=== PATIENT | female | born 1955 | race Caucasian/White ===

== ENCOUNTER → 2017-05-21 | Outpatient (CLI) | payer BC ==
[~2017-05-21] MED LIST: BUPR200T2 PO; CARB0.5D28 OPB; CITA20TA9 PO; LAMO200T38 PO; METH10TA4 PO; PANT40TA PO; PRAV20TA PO; PSEU60TA80 PO; TRAZ100T29 PO; TRIA3AER NAE
--- NOTE | 2017-05-22 14:02 | MAMMOGRAPHY REPORT ---
BILATERAL DIGITAL SCREENING MAMMOGRAM TOMOSYNTHESIS WITH CAD: 05/21/2017 CLINICAL HISTORY: Routine screening. Patient has no complaints. TECHNIQUE: Breast tomosynthesis in addition to standard 2D mammography was performed. Current study was also evaluated with a Computer Aided Detection (CAD) system. COMPARISON: Comparison is made to exams dated: 05/15/2016 mammogram, 05/11/2015 mammogram, 04/28/2014 ma mmogram, 04/22/2013 mammogram, 04/21/2012 mammogram, and 04/18/2011 mammogram - [facility]. BREAST COMPOSITION: There are scattered areas of fibroglandular density in both breasts. FINDINGS: No suspicious masses, calcifications, or areas of architectural distortion are noted in ei ther breast. There has been no significant interval change compared to prior exams. IMPRESSION: ACR BI-RADS CATEGORY 1: NEGATIVE There is no mammographic evidence of malignancy. A 1 year screening mammogram is recommended. The pa tient will receive written notification of the results. Approximately 10% of breast cancers are not detected with mammography. A negative mammographic report should not delay biopsy if a clinically suggestive mass is present. Prudence Webster M.D. /:05/21/2017 15:57:26 Billing Typist: Shilpa Barry [facility] letter sent: Normal 1/2 BI-RADS Code: ACR BI-RADS Category 1: Negative
== END | disposition home or self-care (01) ==
LOC: C.MAMM 09:45
PROVIDERS: ATTEND Family Medicine
DX: Z12.31 Encounter for screening mammogram for malignant neoplasm of breast (principal)

== ENCOUNTER 2019-10-27 18:00 | Observation (INO) ==
[2019-10-27] MEDS ORDERED: MoRPHine SULFATE 4 MG/ML 1 ML CARP\\VIAL IV STA (18:55)
[2019-10-27] MEDS ORDERED: KETOROLAC TROMETHAMINE 15 MG/ML VIAL IV STA (18:55)
[2019-10-27 19:24] LABS: Basophils # (auto) 0.04 K/uL (0-0.2); Basophils % (auto) 0.5 %; Eosinophils # (auto) 0.84 K/uL (0-0.5); Eosinophils % (auto) 9.5 %; Hematocrit (blood only) 41.8 % (37-47); Hemoglobin 14.3 g/dL (12.0-16.0); Immature Granulocytes # (auto) 0.02 K/uL (0.00-0.02); Immature Granulocytes % (auto) 0.2 %; Lymphocytes # (auto) 3.46 K/uL (1.2-3.4); Mean Corpuscular Hemoglobin 30.2 pg (25-34); Mean Corpuscular Hgb Conc 34.2 g/dL (32-36); Mean Corpuscular Volume 88.4 fL (80-100); Mean Platelet Volume 9.8 fL (7.4-10.4); Monocytes # (auto) 0.59 K/uL (0.11-0.59); Monocytes % (auto) 6.6 %; Neutrophils # (auto) 3.93 K/uL (1.4-6.5); Neutrophils % (auto) 44.2 %; Platelet Count 352 K/uL (130-400); RDW Coefficient of Variation 12.6 % (11.5-14.5); RDW Standard Deviation 40.7 fL (36.4-46.3); Red Blood Count 4.73 M/uL (4.2-5.4); White Blood Count 8.88 K/uL (4.8-10.8)
[2019-10-27 19:48] LABS: Albumin Level 3.7 gm/dl (3.4-5.0); BUN Creatinine Ratio 14.3 (10-20); Bilirubin,Total 0.3 mg/dl (0.2-1); Calcium 9.4 mg/dl (8.5-10.1); Creatinine Clr Calc Pharmacy 62.8 ml/min; Est GFR (Non-African American) 55.2; Globulin 3.8 gm/dl (2.5-4.0); Total Protein 7.5 gm/dl (6.4-8.2)
[2019-10-27] MEDS ORDERED: IOVERSOL 100ml IV PRN (20:10)
--- NOTE | 2019-10-27 20:28 | CT Scan Report ---
CT abd pelvis IV con only CLINICAL HISTORY: Right-sided abdominal/flank pain. COMPARISON STUDY: CT scan performed 2009 TECHNIQUE: The patient was scanned in a dynamic helical fashion during intravenous administration of 93 cc of Optiray 320. A dose lowering technique was utilized adhering to the principles of ALARA. CT DOSE: 792.48 mGy.cm FINDINGS: Lower chest: There are dependent atelectatic changes present. Liver: There is hepatic steatosis. No focal masses are visualized Gallbladder: . Spleen: Normal in size and attenuation. Pancreas: Unremarkable. Adrenal glands: Unremarkable. Kidneys: There are bilateral hypodense renal lesions, likely representing cysts. There is no hydronep hrosis. Bowel: There are no transition zones to indicate bowel obstruction. By history the appendix is surgic ally absent. There is colonic diverticulosis. There is no evidence of acute peridiverticular inflamma tory change. There is soft tissue prominence in the region of the ileocecal valve. A cecal polyp vidya ot be excluded. Correlation with history of recent colon screening is recommended Peritoneum: There is no intraperitoneal free air or abdominal ascites. There is a small fat-containin g periumbilical hernia Vasculature: The abdominal aorta is normal in course and caliber. Adenopathy: None. Pelvic viscera: The bladder, and pelvic viscera are unremarkable. Skeletal structures: No destructive osseous lesions are seen. IMPRESSION: 1. No evidence of bowel obstruction. No evidence of free air 2. Surgically absent appendix 3. Diverticulosis. No evidence of acute diverticulitis 4. Bilateral hypodense renal lesions likely representing cysts. No hydronephrosis 5. Soft tissue prominence in the region of the ileocecal valve. A cecal polyp cannot be excluded. Cor relation with history of recent colon screening is recommended ACT 112: Negative or not required by law. Electronically signed by: Waylon Frey M.D. 10/27/2019 8:27 PM
--- NOTE | 2019-10-27 20:31 | CT Scan Report ---
CT lumbar spine wo con CT DOSE: CLINICAL HISTORY: Low back and right flank pain TECHNIQUE: Helical images were acquired in transverse plane. Reformatted sagittal and coronal images were reviewed. A dose lowering technique was utilized adhering to the principles of ALARA. CONTRAST: No contrast was administered COMPARISON STUDY: None. FINDINGS: L1-2 level: There is no evidence of significant disc bulge or focal herniation. There is no evidence of spinal or foraminal stenosis. L2-3 level: There is no evidence of significant disc bulge or focal herniation. There is no evidence of spinal or foraminal stenosis. L3-4 level: There is a mild circumferential disc bulge. There is minimal spinal canal narrowing. Ther e is moderate facet joint arthropathy L4-5 level: There is a minimal grade 1 spondylolisthesis of L4 and L5. There is facet joint arthropat hy. There is a minimal disc bulge. There is mild spinal canal narrowing. There is no significant fora katlin narrowing L5-S1 level: There is no evidence of significant disc bulge or focal herniation. There is no evidence of spinal or foraminal stenosis. No acute fractures or traumatic subluxations are visualized. No destructive lesions are evident. IMPRESSION: 1. Mild multilevel degenerative change with lower lumbar facet joint arthropathy and mild disc bulges 2. No acute fractures or traumatic subluxations ACT 112: Negative or not required by law. Electronically signed by: Waylon Frey M.D. 10/27/2019 8:29 PM
[2019-10-27] MEDS ORDERED: ONDANSETRON INJ 2 MG/ML 2 ML VIAL IV STA ×2 (21:03→22:13)
[2019-10-27] MEDS ORDERED: DEXAMETHASONE **PF** INJ 10 MG/ML VIAL IV ONE (21:03)
[2019-10-27] MEDS ORDERED: HYDROCODONE/ACETAMOPHEN 5/325MG TAB PO ONE (21:41)
[2019-10-27] MEDS ORDERED: LIDOCAINE 5% 1 PATCH TD ONE (21:42)
[2019-10-27 22:04] LABS: Appearance Urine Clear (Clear); Bilirubin Urine Negative (Negative); Blood Urine Negative (Negative); Color Urine Yellow; Glucose Urine UA Negative (Negative); Ketones Urine Negative (Negative); Leukocyte Esterase Urine Negative (Negative); Nitrite Urine Negative (Negative); Protein Urine Negative (Negative); Specific Gravity Urine 1.044 (1.000-1.030); Urobilinogen Urine Negative (Negative)
--- NOTE | 2019-10-27 23:00 | Emergency Department Note ---
Entered by Shirley Arce acting as a scribe for Hu Mendoza M.D. History of Present Illness General Chief complaint: Hip Pain Stated complaint: HIP PAIN Time Seen by Provider: 10/27/19 18:43 Source: patient History of Present Illness Onset (ago): year(s) (several) Location: hip Pain Consistency: + intermittent Maximum Pain Intensity: 10 Quality: + other (hip pain) Associated symptoms: + other (+leg numbness or weakness; -urinary symptoms); no nausea/vomiting The patient is a 64 year old female, with past medical history of osteoporosis and kidney stone, who presents to the Emergency Room with complaints of intermittent hip pain over the last several years. The patient reports that her symptoms began 8 years ago following breaking her left leg from a fall. The patient states she started developing left hip pain after she broke her left leg, and the patient notes she saw a medical records library professor for her symptoms. The pat dahlia reports that her medical records library professor told her that she has bursitis, and she states she was recommended to go to physical therapy. The patient states that after her 3rd or 4th visit to physical therapy, her left hip pain shifted to the right side and has been that way ever since. The patient is complaining of right hip pain currently. She states that [facility] told her that they think her symptoms are caused by her pelvic being out of line. The patient notes the pain is located to the top of her right hip and then spreads into the back in that area. The patient denies numbness or weakness down her legs, nausea, vomiting, or urinary symptoms. The patient states she took 2-3 ibuprofen about 7-8 hours ago, but the patient states this did not provide much relief. The patient denies getting imaging done on her hips recently. The patient denies her present symptoms feeling like her past kidney stone symptoms. Home Medications Home Medications Medication Instructions Recorded Confirmed Type alendronate [Fosamax] 70 mg PO WK 10/27/19 10/27/19 History armodafinil [Nuvigil] 150 mg PO DAILY 10/27/19 10/27/19 History ascorbic acid (vitamin C) [Vitamin 1 g PO DAILY 10/27/19 10/27/19 History C] atorvastatin [Lipitor] 10 mg PO DAILY 10/27/19 10/27/19 History bupropion HCl 300 mg PO DAILY 10/27/19 10/27/19 History calcium carbonate [Calcium 600] 600 mg PO DAILY 10/27/19 10/27/19 History cholecalciferol (vitamin D3) 400 unit PO DAILY 10/27/19 10/27/19 History [Vitamin D3] cyanocobalamin (vitamin B-12) 1,000 mcg PO DAILY 10/27/19 10/27/19 History [Vitamin B-12] guaifenesin [Mucinex] 600 mg PO Q12H PRN 10/27/19 10/27/19 History lamotrigine 200 mg PO HS 10/27/19 10/27/19 History pantoprazole [Protonix] 40 mg PO BID 10/27/19 10/27/19 History sodium chloride [Saline Nasal Mist] 1 spray INTRANASAL UD PRN 10/27/19 10/27/19 History trazodone 25 mg PO HS PRN 10/27/19 10/27/19 History triamcinolone acetonide [Nasacort] 1 - 2 spray INTRANASAL DAILY PRN 10/27/19 History Allergies Allergy/AdvReac Type Severity Reaction Status Date / Time oxybutynin Allergy Mild DRY MOUTH Verified 10/27/19 18:58 temazepam Allergy Mild DIDN'T Verified 10/27/19 18:58 HELP HER amitriptyline AdvReac Severe NON Verified 10/27/19 18:58 FUNCTIONING buspirone AdvReac Severe IMMOBILE Verified 10/27/19 18:58 paroxetine AdvReac Mild SHAKES Verified 10/27/19 18:58 Past Med/Surg History Medical History Headache (Acute) Headache (Acute) Kidney stone (Resolved) Left leg pain (Acute) Malrotation of intestine (Resolved) Nausea and vomiting (Acute) Osteoporosis Family History Other No significant family history Social History Preferred Language: German Feels Safe at Home: Yes Smoking Status: Former smoker Review of Systems See HPI for pertinent positives & negatives. and A total of 10 systems reviewed and were otherwise negative Physical Exam Vital Signs Vital Signs - 24 hr 10/27/19 18:03 10/27/19 18:40 10/27/19 22:23 Temperature 36.6 C Temperature Source Oral Pulse Rate 73 Pulse Rate [Left] 68 70 Respiratory Rate 20 18 19 Respiratory Effort / Characteristics Non-Labored Spontaneous Non-Labored Spontaneous Blood Pressure 212/119 H Blood Pressure [Left Arm] 152/71 H 167/109 H Blood Pressure Mean 150 Blood Pressure Mean [Left Arm] 98 128 Blood Pressure Position Lying Blood Pressure Position [Left Arm] Lying Pulse Oximetry 97 97 97 Oxygen Delivery Method Room Air Room Air Sepsis Recent Fever Within 48 Hours No Sepsis New/Unexplained Change in Mental Status No Sepsis Action Taken by Nursing No Action Required GENERAL: Awake, alert, uncomfortable-appearing, in no distress HENT: Normocephalic, atraumatic. EYES: Normal conjunctiva. Sclera non-icteric. RESPIRATORY: Clear to auscultation. Normal respiratory effort. CARDIAC: Normal rate. Normal rhythm. Extremities warm and well perfused. GI: Soft, non-distended. No tenderness to palpation. No rebound or guarding. No masses. RECTAL: Deferred. MUSCULOSKELETAL: Atraumatic. Chest examination reveals no tenderness. There is no CVA tenderness to palpation. Mild right SI joint tenderness. LOWER EXTREMITIES: Calves are equal size bilaterally and non-tender. No edema. Lower extremities NVI. NEURO: Normal sensorium. No sensory or motor deficits noted. No facial droop. SKIN: Warm and dry. No rash or jaundice noted. Course Course 1850: Past medical records reviewed. The patient was evaluated in room A4B. A complete history and physical exam was performed. 2225: I reviewed the patient's case with Dr. Nix-Alma Reeves. Dr. Nix will evaluate the patient for further management. Consultations Consultation #1: I reviewed the patient's case with Dr. Nix-Alma Reeves. Dr. Nix will evaluate the patient for further management. Administered Medications Ioversol (Optiray 320 100ml) 93 ml IV ONCE PRN PRN Reason: Interaction Checking Stop: 10/31/19 20:09 Last Admin: 10/27/19 20:12 Dose: 93 ml Documented by: [id number] Discontinued Medications Hydrocodone Bitart/Acetaminophen ([employer] 5/325) 1 tab PO ONE ONE Stop: 10/27/19 21:42 Last Admin: 10/27/19 21:49 Dose: 1 tab Documented by: [id number] Dexamethasone Sodium Phosphate (Decadron Pf) 6 mg IV NOW ONE Stop: 10/27/19 21:04 Last Admin: 10/27/19 21:10 Dose: 6 mg Documented by: [id number] Ketorolac Tromethamine (Toradol) 15 mg IV NOW STA Stop: 10/27/19 18:56 Last Admin: 10/27/19 19:30 Dose: 15 mg Documented by: [id number] Lidocaine (Lidoderm 5%) 1 patch TD ONE ONE Stop: 10/27/19 21:43 Last Admin: 10/27/19 21:49 Dose: 1 patch Documented by: [id number] Morphine Sulfate (Morphine Sulfate) 4 mg IV NOW STA Stop: 10/27/19 18:56 Last Admin: 10/27/19 19:30 Dose: 4 mg Documented by: [id number] Ondansetron HCl (Zofran) 4 mg IV NOW STA Stop: 10/27/19 21:04 Last Admin: 10/27/19 21:10 Dose: 4 mg Documented by: [id number] Ondansetron HCl (Zofran) 4 mg IV NOW STA Stop: 10/27/19 22:14 Last Admin: 10/27/19 22:22 Dose: 4 mg Documented by: [id number] Medical Decision Making Differential Diagnosis Differential diagnosis: Etiologies such as renal colic, appendicitis, diverticulitis, mesenteric ischemia, aortic pathology, infections, inflammatory bowel disease, PUD, biliary pathology, UTI, as well as others were entertained. Medical Records Attestation: I reviewed the patient's medical records. Home Medications Current Medication List: was personally reviewed by me Laboratory Data Attestation: I reviewed the patient's lab results. Result diagrams: 10/27/19 19:11 10/27/19 19:11 Lab Results 10/27/19 10/27/19 10/27/19 Range/Units 19:11 19:11 21:37 WBC 8.88 (4.8-10.8) K/uL RBC 4.73 (4.2-5.4) M/uL Hgb 14.3 (12.0-16.0) g/dL Hct 41.8 (37-47) % MCV 88.4 (80-100) fL MCH 30.2 (25-34) pg MCHC 34.2 (32-36) g/dL RDW Std Deviation 40.7 (36.4-46.3) fL RDW Coeff of [place] 12.6 (11.5-14.5) % Plt Count 352 (130-400) K/uL MPV 9.8 (7.4-10.4) fL Immature Gran % (Auto) 0.2 % Neut % (Auto) 44.2 % Lymph % (Auto) 39.0 % [place] % (Auto) 6.6 % Eos % (Auto) 9.5 % Baso % (Auto) 0.5 % Immature Gran # (Auto) 0.02 (0.00-0.02) K/uL Neut # (Auto) 3.93 (1.4-6.5) K/uL Lymph # (Auto) 3.46 H (1.2-3.4) K/uL [place] # (Auto) 0.59 (0.11-0.59) K/uL Eos # (Auto) 0.84 H (0-0.5) K/uL Baso # (Auto) 0.04 (0-0.2) K/uL Sodium 140 (136-145) mmol/L Potassium 4.0 (3.5-5.1) mmol/L Chloride 107 (98-107) mmol/L Carbon Dioxide 29 (21-32) mmol/L Anion Gap 4.0 (3-11) BUN 15 (7-18) mg/dl Creatinine 1.07 (0.6-1.2) mg/dl Est Cr Clr Drug Dosing 62.8 ml/min Est GFR ( Amer) 64.0 Est GFR (Non-Af Amer) 55.2 BUN/Creatinine Ratio 14.3 (10-20) Glucose 113 H (70-99) mg/dl Calcium 9.4 (8.5-10.1) mg/dl Total Bilirubin 0.3 (0.2-1) mg/dl AST 28 (15-37) U/L ALT 34 (12-78) U/L Alkaline Phosphatase 150 H (45-117) U/L Total Protein 7.5 (6.4-8.2) gm/dl Albumin 3.7 (3.4-5.0) gm/dl Globulin 3.8 (2.5-4.0) gm/dl Albumin/Globulin Ratio 1.0 (0.9-2) Lipase 192 (73-393) U/L Specimen Hemolysis Urine Color Yellow Urine Appearance Clear (Clear) Urine pH 7.0 (4.5-7.5) Ur Specific [place] 1.044 H (1.000-1.030) Urine Protein Negative (Negative) Urine Glucose (UA) Negative (Negative) Urine Ketones Negative (Negative) Urine Blood Negative (Negative) Urine Nitrite Negative (Negative) Urine Bilirubin Negative (Negative) Urine Urobilinogen Negative (Negative) Ur Leukocyte Esterase Negative (Negative) Imaging Data Radiologist's Impression: Radiology results as stated below per my review and the radiologist's interpretation: CT abd pelvis IV con only CLINICAL HISTORY: Right-sided abdominal/flank pain. COMPARISON STUDY: CT scan performed 2009 TECHNIQUE: The patient was scanned in a dynamic helical fashion during intra venous administration of 93 cc of Optiray 320. A dose lowering technique was utilized adhering to the principles of ALARA. CT DOSE: 792.48 mGy.cm FINDINGS: Lower chest: There are dependent atelectatic changes present. Liver: There is hepatic steatosis. No focal masses are visualized Gallbladder: . Spleen: Normal in size and attenuation. Pancreas: Unremarkable. Adrenal glands: Unremarkable. Kidneys: There are bilateral hypodense renal lesions, likely representing cysts. There is no hydronephrosis. Bowel: There are no transition zones to indicate bowel obstruction. By history the appendix is surgically absent. There is colonic diverticulosis. There is no evidence of acute peridiverticular inflammatory change. There is soft tissue prominence in the region of the ileocecal valve. A cecal polyp cannot be excluded. Correlation with history of recent colon screening is recommended Peritoneum: There is no intraperitoneal free air or abdominal ascites. There is a small fat-containing periumbilical hernia Vasculature: The abdominal aorta is normal in course and caliber. Adenopathy: None. Pelvic viscera: The bladder, and pelvic viscera are unremarkable. Skeletal structures: No destructive osseous lesions are seen. IMPRESSION: 1. No evidence of bowel obstruction. No evidence of free air 2. Surgically absent appendix 3. Diverticulosis. No evidence of acute diverticulitis 4. Bilateral hypodense renal lesions likely representing cysts. No hydronephrosis 5. Soft tissue prominence in the region of the ileocecal valve. A cecal polyp cannot be excluded. Correlation with history of recent colon screening is recommended ACT 112: Negative or not required by law. Electronically signed by: Waylon Frey M.D. 10/27/2019 8:[address] lumbar spine wo con CT DOSE: CLINICAL HISTORY: Low back and right flank pain TECHNIQUE: Helical images were acquired in transverse plane. Reformatted sagittal and coronal images were reviewed. A dose lowering technique was utilized adhering to the principles of ALARA. CONTRAST: No contrast was administered COMPARISON STUDY: None. FINDINGS: L1-2 level: There is no evidence of significant disc bulge or focal herniation. There is no evidence of spinal or foraminal stenosis. L2-3 level: There is no evidence of significant disc bulge or focal herniation. There is no evidence of spinal or foraminal stenosis. L3-4 level: There is a mild circumferential disc bulge. There is minimal spinal canal narrowing. There is moderate facet joint arthropathy L4-5 level: There is a minimal grade 1 spondylolisthesis of L4 and L5. There is facet joint arthropathy. There is a minimal disc bulge. There is mild spinal canal narrowing. There is no significant foraminal narrowing L5-S1 level: There is no evidence of significant disc bulge or focal herniation. There is no evidence of spinal or foraminal stenosis. No acute fractures or traumatic subluxations are visualized. No destructive lesions are evident. IMPRESSION: 1. Mild multilevel degenerative change with lower lumbar facet joint arthropathy and mild disc bulges 2. No acute fractures or traumatic subluxations ACT 112: Negative or not required by law. Electronically signed by: Waylon Frey M.D. 10/27/2019 8:29 PM Prescription Drug Monitoring [place] Drug Monitoring Program reviewed and no issues identified Blood Pressure Blood Pressure Findings: Elevated blood pressure Blood Pressure Disposition: further management by hospitalist CONY Paulson Patient is a 64-year-old female with a past medical history including kidney stone as well as recent left leg/hip injury currently in physical therapy for the last 6 weeks now having significant right hip pain. Denies trauma. Afebrile upon arrival. Tried some Motrin this morning without significant pain control. Patient significantly hypertensive upon arrival likely due to discomfort. Upon evaluation the room her blood pressure is 150 systolic. Again no new trauma reported. Denies any current numbness or tingling lower extremities. Pain is in the right hip into the right flank/SI joint. No significant abdominal symptoms. States it does not feel like prior kidney stone. Has not had recent imaging. Given this did complete a CT abdomen pelvis as well as lumbar spine to look for possible pathology. No significant leukocytosis or fever and lower suspicion for infectious cause. Given initially some Toradol and morphine for pain control. Do not believe this spinal cord pathology. Imaging here with some mild degenerative changes but no other acute pathology. Did discuss with her finding a possible polyp in the colon states she is a history of these and can follow-up in the outpatient setting. Given a dose of a steroid, lidocaine patch, and [employer] here. Pain is worse with movement. Patient ambulated the bathroom at worsening pain with this and nausea. Urinalysis is negative. Patient lives in a tri level home. Concern for stairs and her fall risk. With her intractable pain and nausea from the pain medications after jose f discussion with the patient feel that for safety and to obtain a acceptable pain regimen that she can tolerate further observation here in the hospital is warranted. Discussed with the hospitalist. Impression & Plan Intractable back pain Discharge Plan Visit Data Chief Complaint: Hip Pain Stated Complaint: HIP PAIN ED Provider: [facility] Discharge Problem: Intractable back pain Patient Disposition: Being Evaluated by Hospitalist Forms Stand Alone Forms: [employer] [facility] Prescriptions Prescriptions: No Action ascorbic acid (vitamin C) [Vitamin C] 1,000 mg Tablet 1 g PO DAILY RF: 0 lamotrigine 200 mg tablet 200 mg PO HS RF: 0 trazodone 50 mg Tablet 25 mg PO HS PRN (Reason: Insomnia) RF: 0 atorvastatin [Lipitor] 10 mg tablet 10 mg PO DAILY RF: 0 alendronate [Fosamax] 70 mg tablet 70 mg PO WK RF: 0 cyanocobalamin (vitamin B-12) [Vitamin B-12] 1,000 mcg Tablet 1,000 mcg PO DAILY RF: 0 calcium carbonate [Calcium 600] 600 mg calcium (1,500 mg) Tablet 600 mg PO DAILY RF: 0 pantoprazole [Protonix] 40 mg tablet,delayed release (DR/EC) 40 mg PO BID RF: 0 triamcinolone acetonide [Nasacort] 55 mcg Aerosol,[place] 1 - 2 spray INTRANASAL DAILY PRN (Reason: Nasal Congestion) RF: 0 cholecalciferol (vitamin D3) [Vitamin D3] 400 unit Capsule 400 unit PO DAILY RF: 0 sodium chloride [Saline Nasal Mist] 0.65 % Aerosol,[place] 1 spray INTRANASAL UD PRN (Reason: Nasal Congestion) RF: 0 bupropion HCl 300 mg tablet extended release 24 hr 300 mg PO DAILY RF: 0 armodafinil [Nuvigil] 150 mg tablet 150 mg PO DAILY RF: 0 guaifenesin [Mucinex] 600 mg Tablet Extended Release 12hr 600 mg PO Q12H PRN (Reason: Congestion) RF: 0 Referrals Referrals: Wilfredo Dominguez MD [Primary Care Provider] - The scribe's documentation has been prepared under my direction and personally reviewed by me in its entirety. I confirm that the note above accurately reflects all work, treatment, procedures, and medical decision making performed by me.
[2019-10-27] MEDS ORDERED: METOCLOPRAMIDE HCL INJ 5 MG/ML 2 ML VIAL IV ONE (23:06)
[2019-10-27] MEDS ORDERED: lisinopriL 5 MG TAB PO ONE (23:18)
[2019-10-27] MEDS ORDERED: lisinopriL 5 MG TAB PO STA (23:22)
--- NOTE | 2019-10-27 23:52 | History & Physical Report ---
Date of Service October 27, 2019 Assessment & Plan (1) Asymptomatic hypertensive urgency: Secondary to uncontrolled right hip pain Probable chronic hypertension given concentric LVH on outpatient DSE August 2017 mood disorder, at baseline hyperlipidemia on statin Rx history of DVT as per records Prediabetes, recent outpatient hemoglobin A1c of 6.14 August 2019 past tobacco abuse OBS Medical telemetry for uncontrolled blood pressure Initiate lisinopril Analgesia Orthopedics consult RE right hip pain (Patient requesting for Dr. Goodwin.) DVT prophylaxis. SCDs (RE possible procedure) Lovenox 40 mg SQ daily if no procedure contemplated from Orthopedics standpoint. Full code History of Present Illness Chief Complaint: Right hip pain Primary Care Provider: Wilfredo Dominguez MD History obtained from patient and records. Medical history significant for mood disorder, hyperlipidemia, JOSÉ MIGUEL on CPAP, history of DVT as per records, prediabetes as per records, past tobacco abuse. 6 weeks ago patient noted achy left hip pain attributed to trochanteric bursitis and by case management director. Patient eventually went for outpatient physical therapy. 3 weeks ago, patient noted improvement of left hip pain and subsequent pain migration to the right hip. No lower extremity radiation. No fever, no chills. No incontinence. Intractable pain at the ER. 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 Allergies Allergy/AdvReac Type Severity Reaction Status Date / Time oxybutynin Allergy Mild DRY MOUTH Verified 10/27/19 18:58 temazepam Allergy Mild DIDN'T Verified 10/27/19 18:58 HELP HER amitriptyline AdvReac Severe NON Verified 10/27/19 18:58 FUNCTIONING buspirone AdvReac Severe IMMOBILE Verified 10/27/19 18:58 paroxetine AdvReac Mild SHAKES Verified 10/27/19 18:58 Home Medications Home Medications Medication Instructions Recorded Confirmed Type alendronate [Fosamax] 70 mg PO WK 10/27/19 10/27/19 History armodafinil [Nuvigil] 150 mg PO DAILY 10/27/19 10/27/19 History ascorbic acid (vitamin C) [Vitamin 1 g PO DAILY 10/27/19 10/27/19 History C] atorvastatin [Lipitor] 10 mg PO DAILY 10/27/19 10/27/19 History bupropion HCl 300 mg PO DAILY 10/27/19 10/27/19 History calcium carbonate [Calcium 600] 600 mg PO DAILY 10/27/19 10/27/19 History cholecalciferol (vitamin D3) 400 unit PO DAILY 10/27/19 10/27/19 History [Vitamin D3] cyanocobalamin (vitamin B-12) 1,000 mcg PO DAILY 10/27/19 10/27/19 History [Vitamin B-12] guaifenesin [Mucinex] 600 mg PO Q12H PRN 10/27/19 10/27/19 History lamotrigine 200 mg PO HS 10/27/19 10/27/19 History pantoprazole [Protonix] 40 mg PO BID 10/27/19 10/27/19 History sodium chloride [Saline Nasal Mist] 1 spray INTRANASAL UD PRN 10/27/19 10/27/19 History trazodone 25 mg PO HS PRN 10/27/19 10/27/19 History triamcinolone acetonide [Nasacort] 1 - 2 spray INTRANASAL DAILY PRN 10/27/19 10/27/19 History Past Med/Surg History Medical History Headache (Acute) Headache (Acute) Kidney stone (Resolved) Left leg pain (Acute) Malrotation of intestine (Resolved) Nausea and vomiting (Acute) Osteoporosis Family History Other No significant family history Social History Preferred Language: Danish Communication Ability: Effective Lug Loader Required: No Beliefs That Will Affect Care: None Current Living Situation: Spouse Other Information That Helps Us Care for You: No Feels Safe at Home: Yes Safety Concerns: Feels Safe At This Time Smoking Status: Former smoker Tobacco Type: cigarettes ; Do You Dip or Chew Tobacco: No ; Second Hand Exposure: No ; Tobacco Cessation Education Requested by Patient: No Hx Alcohol Use: No Hx Substance Use: No Physical Exam Physical Exam: GENERAL: Slightly uncomfortable, obese, no respiratory distress SKIN: Normal color, warm HEENT: Bespectacled, [place] palpebral conjunctivae, no ptosis, moist buccal mucosa NECK : Supple, short neck, no tenderness CHEST : CTA, no tenderness HEART : RRR, no obvious murmurs ABDOMEN: Some distention, nontender EXTREMITIES : Minimal LE swelling, R hip tenderness, no other conspicuous deformities noted NEUROLOGIC : Coherent, no facial asymmetry, no other gross focality Results & Data Vital Signs (Past 12 Hours) Vital Signs Temp Pulse Pulse Resp BP BP Pulse Ox 10/27/19 23:01 92 10/27/19 22:59 66 20 183/95 H 95 10/27/19 22:23 70 19 167/109 H 97 10/27/19 18:40 68 18 152/71 H 97 10/27/19 18:03 36.6 C 73 20 212/119 H 97 Laboratory Results Laboratory Results WBC 8.88 K/uL (4.8-10.8) 10/27/19 19:11 RBC 4.73 M/uL (4.2-5.4) 10/27/19 19:11 Hgb 14.3 g/dL (12.0-16.0) 10/27/19 19:11 Hct 41.8 % (37-47) 10/27/19 19:11 MCV 88.4 fL (80-100) 10/27/19 19:11 MCH 30.2 pg (25-34) 10/27/19 19:11 MCHC 34.2 g/dL (32-36) 10/27/19 19:11 RDW Std Deviation 40.7 fL (36.4-46.3) 10/27/19 19:11 RDW Coeff of [place] 12.6 % (11.5-14.5) 10/27/19 19:11 Plt Count 352 K/uL (130-400) 10/27/19 19:11 MPV 9.8 fL (7.4-10.4) 10/27/19 19:11 Immature Gran % (Auto) 0.2 % 10/27/19 19:11 Neut % (Auto) 44.2 % 10/27/19 19:11 Lymph % (Auto) 39.0 % 10/27/19 19:11 [place] % (Auto) 6.6 % 10/27/19 19:11 Eos % (Auto) 9.5 % 10/27/19 19:11 Baso % (Auto) 0.5 % 10/27/19 19:11 Immature Gran # (Auto) 0.02 K/uL (0.00-0.02) 10/27/19 19:11 Neut # (Auto) 3.93 K/uL (1.4-6.5) 10/27/19 19:11 Lymph # (Auto) 3.46 K/uL (1.2-3.4) H 10/27/19 19:11 [place] # (Auto) 0.59 K/uL (0.11-0.59) 10/27/19 19:11 Eos # (Auto) 0.84 K/uL (0-0.5) H 10/27/19 19:11 Baso # (Auto) 0.04 K/uL (0-0.2) 10/27/19 19:11 Sodium 140 mmol/L (136-145) 10/27/19 19:11 Potassium 4.0 mmol/L (3.5-5.1) 10/27/19 19:11 Chloride 107 mmol/L (98-107) 10/27/19 19:11 Carbon Dioxide 29 mmol/L (21-32) 10/27/19 19:11 Anion Gap 4.0 (3-11) 10/27/19 19:11 BUN 15 mg/dl (7-18) 10/27/19 19:11 Creatinine 1.07 mg/dl (0.6-1.2) 10/27/19 19:11 Est Cr Clr Drug Dosing 62.8 ml/min 10/27/19 19:11 Est GFR ( Amer) 64.0 10/27/19 19:11 Est GFR (Non-Af Amer) 55.2 10/27/19 19:11 BUN/Creatinine Ratio 14.3 (10-20) 10/27/19 19:11 Glucose 113 mg/dl (70-99) H 10/27/19 19:11 Calcium 9.4 mg/dl (8.5-10.1) 10/27/19 19:11 Total Bilirubin 0.3 mg/dl (0.2-1) 10/27/19 19:11 AST 28 U/L (15-37) 10/27/19 19:11 ALT 34 U/L (12-78) 10/27/19 19:11 Alkaline Phosphatase 150 U/L (45-117) H 10/27/19 19:11 Total Protein 7.5 gm/dl (6.4-8.2) 10/27/19 19:11 Albumin 3.7 gm/dl (3.4-5.0) 10/27/19 19:11 Globulin 3.8 gm/dl (2.5-4.0) 10/27/19 19:11 Albumin/Globulin Ratio 1.0 (0.9-2) 10/27/19 19:11 Lipase 192 U/L (73-393) 10/27/19 19:11 Specimen Hemolysis 10/27/19 19:11 Urine Color Yellow 10/27/19 21:37 Urine Appearance Clear (Clear) 10/27/19 21:37 Urine pH 7.0 (4.5-7.5) 10/27/19 21:37 Ur Specific [place] 1.044 (1.000-1.030) H 10/27/19 21:37 Urine Protein Negative (Negative) 10/27/19 21:37 Urine Glucose (UA) Negative (Negative) 10/27/19 21:37 Urine Ketones Negative (Negative) 10/27/19 21:37 Urine Blood Negative (Negative) 10/27/19 21:37 Urine Nitrite Negative (Negative) 10/27/19 21:37 Urine Bilirubin Negative (Negative) 10/27/19 21:37 Urine Urobilinogen Negative (Negative) 10/27/19 21:37 Ur Leukocyte Esterase Negative (Negative) 10/27/19 21:[address] lumbar spine: 1. Mild multilevel degenerative change with lower lumbar facet joint arthropathy and mild disc bulges 2. No acute fractures or traumatic subluxations EKG as per my interpretation rate 60, NSR, LAD, LAFB, incomplete RBBB, 1 AVB, T wave abnormalities septal leads
[2019-10-28] MEDS ORDERED: SODIUM CHLORIDE 0.9% 1000ML 1,000 ML IV ONE (00:55)
[2019-10-28] MEDS ORDERED: LORazepam 0.5 MG/1 ML VIAL IV PRN (00:55)
[2019-10-28] MEDS ORDERED: MoRPHine SULFATE 4 MG/ML 1 ML CARP\\VIAL IV PRN (00:55)
[2019-10-28] MEDS ORDERED: TRAZODONE HCL 50 MG TAB PO PRN (00:55)
[2019-10-28] MEDS: PROMETHAZINE HCL 12.5 MG in SODIUM CHLORIDE 0.9% 50 ML IV PRN ×3 (06:33→20:47)
[2019-10-28 07:02] LABS: BUN Creatinine Ratio 14.2 (10-20); Calcium 8.9 mg/dl (8.5-10.1); Creatinine Clr Calc Pharmacy 60.2 ml/min; Est GFR (African American) 61.9; Est GFR (Non-African American) 53.4; Potassium 3.8 mmol/L (3.5-5.1)
[2019-10-28] MEDS ORDERED: lisinopriL 5 MG TAB PO SCH (09:00)
[2019-10-28] MEDS: ACETAMINOPHEN 325 MG TAB PO PRN (09:29)
[2019-10-28] MEDS: CYANOCOBALAMIN 500 MCG TABLET (VITAMIN B-12) PO SCH (09:30)
[2019-10-28] MEDS: ATORVASTATIN 10 MG TAB PO SCH (09:30)
[2019-10-28] MEDS: PANTOprazole 40 MG TAB PO SCH ×2 (09:30→20:49)
[2019-10-28] MEDS: BuPROPion XL 300 MG TABCR PO SCH (09:30)
[2019-10-28] MEDS: TRAMADOL HCL 50 MG TABLET PO PRN ×2 (10:11→14:18)
--- NOTE | 2019-10-28 13:36 | XRay Report ---
XR hip RT 2V w pelvis CLINICAL HISTORY: R Hip Pain pain COMPARISON: None. DISCUSSION: Mild degenerative change of the hips bilaterally. No evidence for acetabular protrusion. There is no evidence for soft tissue swelling. IMPRESSION: Mild degenerative change of the hips bilaterally. No acute process. ACT 112: Negative or not required by law. The above report was generated using voice recognition software. It may contain grammatical, syntax or spelling errors. Electronically signed by: Kraig Ortega M.D. 10/28/2019 1:35 PM
--- NOTE | 2019-10-28 15:51 | Orthopedic Consultation ---
Date of Consultation October 28, 2019 Assessment & Plan (1) Intractable back pain: We were consulted evaluated her for hip pain. Patient states that she has hip pain but when asked to localize where the pain is she grabs her lumbar spine. It is to the right side of the lumbar spine but is the lumbar spine where she locates her pain. She not really having any radicular pain or any neurologic symptoms. The examination of the hip itself is asymptomatic. She does not have any groin symptoms. X-rays of the hip are normal. I will order some plain films of the lumbar spine and she may benefit from evaluation from spine. However my suspicion is this is muscular pain in nature and she should be treated symptomatically but I would defer to spine's assessment on that. But again I do not see any hip pathology present, this seems to be more low back pain. Present on Admission?: Yes History of Present Illness Attending Physician: Prabhakar Mcneill MD History of Present Illness The patient is a 64-year-old female states that she had pain off and on for last 6 months or so. More of her pain in the recent time has been over the lateral side of the left hip. She has been treated with physical therapy for greater trochanteric bursitis the left hip. This pain is been improving and has essentially resolved. Of the last week she has been having increasing pain. She states it is her right hip but the region she actually locates is the region of the lumbar spine when she demonstrates where her pain is. She denies pain rating down the leg. She denies any neurologic symptoms down the leg. She denies any groin pain. Denies any fevers or chills. Denies any trauma. Allergies Allergy/AdvReac Type Severity Reaction Status Date / Time oxybutynin Allergy Mild DRY MOUTH Verified 10/27/19 18:58 temazepam Allergy Mild DIDN'T Verified 10/27/19 18:58 HELP HER amitriptyline AdvReac Severe NON Verified 10/27/19 18:58 FUNCTIONING buspirone AdvReac Severe IMMOBILE Verified 10/27/19 18:58 paroxetine AdvReac Mild SHAKES Verified 10/27/19 18:58 Home Medications Home Medications Medication Instructions Recorded Confirmed Type alendronate [Fosamax] 70 mg PO WK 10/27/19 10/27/19 History armodafinil [Nuvigil] 150 mg PO DAILY 10/27/19 10/27/19 History ascorbic acid (vitamin C) [Vitamin 1 g PO DAILY 10/27/19 10/27/19 History C] atorvastatin [Lipitor] 10 mg PO DAILY 10/27/19 10/27/19 History bupropion HCl 300 mg PO DAILY 10/27/19 10/27/19 History calcium carbonate [Calcium 600] 600 mg PO DAILY 10/27/19 10/27/19 History cholecalciferol (vitamin D3) 400 unit PO DAILY 10/27/19 10/27/19 History [Vitamin D3] cyanocobalamin (vitamin B-12) 1,000 mcg PO DAILY 10/27/19 10/27/19 History [Vitamin B-12] guaifenesin [Mucinex] 600 mg PO Q12H PRN 10/27/19 10/27/19 History lamotrigine 200 mg PO HS 10/27/19 10/27/19 History pantoprazole [Protonix] 40 mg PO BID 10/27/19 10/27/19 History sodium chloride [Saline Nasal Mist] 1 spray INTRANASAL UD PRN 10/27/19 10/27/19 History trazodone 25 mg PO HS PRN 10/27/19 10/27/19 History triamcinolone acetonide [Nasacort] 1 - 2 spray INTRANASAL DAILY PRN 10/27/19 10/27/19 History Patient History Medical History Headache (Acute) Headache (Acute) Kidney stone (Resolved) Left leg pain (Acute) Malrotation of intestine (Resolved) Nausea and vomiting (Acute) Osteoporosis Family History Other No significant family history Social History Preferred Language: Latvian Communication Ability: Effective 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 Beliefs That Will Affect Care: None marital status: Current Living Situation: Spouse Other Information That Helps Us Care for You: No Feels Safe at Home: Yes Safety Concerns: Feels Safe At This Time Smoking Status: Former smoker Tobacco Type: cigarettes ; Do You Dip or Chew Tobacco: No ; Second Hand Exposure: No ; Tobacco Cessation Education Requested by Patient: No Hx Alcohol Use: No Hx Substance Use: No Physical Exam Constitutional: WD/WN, vitals as above Neck: normal visual inspection Respiratory: normal respiratory effort Cardiovascular: Extremities: normal capillary refill; no edema Musculoskeletal: She is tender to palpation along the right lateral side of the lumbar spine. She has some tenderness extends to the posterior aspect of the iliac wing in that region. Some minor tenderness over the greater trochanter. She has no pain with internal or external rotation of the leg. No groin pain. Distally neurologically intact. Results & Data Vital Signs (Past 12 Hours) Vital Signs Temp Pulse Pulse Resp BP Pulse Ox 10/28/19 15:01 36.7 C 94 H 18 125/80 93 10/28/19 11:56 36.4 C L 88 18 128/84 93 10/28/19 08:00 36.5 C 92 H 90 20 129/84 93 10/28/19 03:51 74
--- NOTE | 2019-10-28 16:28 | XRay Report ---
XR lumbar spine 2-3V CLINICAL HISTORY: pain pain COMPARISON STUDY: No previous studies for comparison. FINDINGS: Mild scoliosis. Mild degenerative disc changes throughout. Vertebral body stature is normal . Osteopenia. IMPRESSION: Mild scoliosis. Osteopenia. Mild degenerative disc change. ACT 112: Negative or not required by law. The above report was generated using voice recognition software. It may contain grammatical, syntax or spelling errors. Electronically signed by: Kraig Ortega M.D. 10/28/2019 4:27 PM
[2019-10-28] MEDS: KETOROLAC TROMETHAMINE 15 MG/ML VIAL IV PRN (17:01)
--- NOTE | 2019-10-28 17:10 | Electrocardiogram Report ---
Test Reason : Blood Pressure : / mmHG Vent. Rate : 061 BPM Atrial Rate : 061 BPM P-R Int : 224 ms QRS Dur : 094 ms QT Int : 420 ms P-R-T Axes : 032 -25 018 degrees QTc Int : 422 ms Sinus rhythm with 1st degree A-V block Incomplete right bundle branch block Cannot rule out Anterior infarct , age undetermined Abnormal ECG When compared with ECG of 18-JUN-2013 11:16, No significant change was found Confirmed by Remy Romero ([id number]) on 10/28/2019 5:09:40 PM Referred By: REFERRED SELF Confirmed By:Remy Romero
--- NOTE | 2019-10-28 17:26 | Hospitalist Progress Note ---
Date of Service October 28, 2019 Assessment & Plan (1) Asymptomatic hypertensive urgency: Hypertensive urgency ? Chronic HTN as LVH noted on Prior ECHO Likely situational--worsened secondary to pain Blood pressure better Started on lisinopril Monitor Right hip/back pain ? Musculoskeletal in Origin Imaging studies showed no acute fractures Lumbar CT:Mild multilevel degenerative change with lower lumbar facet joint arthropathy and mild disc bulges. No acute fractures or traumatic subluxations Hip/Pelvic X ray:Mild degenerative change of the hips bilaterally. No acute process. Lumbar Spine X ray:Mild scoliosis. Osteopenia. Mild degenerative disc change. Orthopedics consulted PT/OT Pain Control Hyperglycemia Check HbA1c t Mood Disorder Stable Continue home medication Hyperlipidemia Continue statin DVT Px: SCDs for now Code Status Full code Disposition PT OT prior to discharge Subjective Patient is seen and examined at bedside Complaints of lower back pain and right hip pain Offers no other complaints Denies any chest pain, SOB, dizziness, nausea, abdominal pain Family at bedside Review of Systems Review of Systems: All systems reviewed & are unremarkable except as noted in HPI & below Physical Exam Physical Exam: Physical Exam: Vitals signs as noted above General Appearance:Obese, no apparent distress Head: normocephalic, Atraumatic Eyes: normal inspection, EOMI Neck: supple, Trachea midline Respiratory/Chest: Normal breath sounds, CTA Cardiovascular: S1, S2, No murmur Abdomen/GI:Soft, Non tender, Bowel sounds present Extremities/Musculoskelatal:normal inspection, no edema, R greater trochanter tender Spine--Lumbar paraspinal mild tender Neurologic/Psych:AAOX3, grossly no focal neurological deficits Skin: normal color, warm Results & Data Vital Signs (Past 12 Hours) Vital Signs Temp Pulse Pulse Resp BP Pulse Ox 10/28/19 15:01 36.7 C 94 H 18 125/80 93 10/28/19 11:56 36.4 C L 88 18 128/84 93 10/28/19 08:00 36.5 C 92 H 90 20 129/84 93 Laboratory Results Short CBC 10/27/19 Range/Units 19:11 WBC 8.88 (4.8-10.8) K/uL Hgb 14.3 (12.0-16.0) g/dL Hct 41.8 (37-47) % Plt Count 352 (130-400) K/uL BMP 01/15/20 01/16/20 19:11 05:55 Sodium 140 137 Potassium 4.0 3.8 Chloride 107 106 Carbon Dioxide 29 24 BUN 15 16 Creatinine 1.07 1.10 Glucose 113 H 195 H Calcium 9.4 8.9 Liver Function 10/27/19 Range/Units 19:11 Total Bilirubin 0.3 (0.2-1) mg/dl AST 28 (15-37) U/L ALT 34 (12-78) U/L Alkaline Phosphatase 150 H (45-117) U/L Albumin 3.7 (3.4-5.0) gm/dl Urine 10/27/19 Range/Units 21:37 Urine Color Yellow Urine Appearance Clear (Clear) Urine pH 7.0 (4.5-7.5) Ur Specific [place] 1.044 H (1.000-1.030) Urine Protein Negative (Negative) Urine Glucose (UA) Negative (Negative)
[2019-10-28] MEDS: lisinopriL 5 MG TAB PO SCH (20:48)
[2019-10-28] MEDS: lamoTRIgine 100 MG TAB PO SCH (20:49)
[2019-10-28] MEDS: MoRPHine SULFATE 4 MG/ML 1 ML CARP\\VIAL IV PRN (21:00)
[2019-10-29] MEDS: KETOROLAC TROMETHAMINE 15 MG/ML VIAL IV PRN ×2 (03:57→16:06)
[2019-10-29 07:47] LABS: Hematocrit (blood only) 38.8 % (37-47); Mean Corpuscular Hemoglobin 29.9 pg (25-34); Mean Corpuscular Hgb Conc 33.5 g/dL (32-36); Mean Corpuscular Volume 89.2 fL (80-100); Mean Platelet Volume 9.7 fL (7.4-10.4); Platelet Count 306 K/uL (130-400); RDW Coefficient of Variation 12.8 % (11.5-14.5); RDW Standard Deviation 41.8 fL (36.4-46.3); Red Blood Count 4.35 M/uL (4.2-5.4)
[2019-10-29] MEDS: CYANOCOBALAMIN 500 MCG TABLET (VITAMIN B-12) PO SCH (07:56)
[2019-10-29] MEDS: ATORVASTATIN 10 MG TAB PO SCH (07:56)
[2019-10-29] MEDS: PANTOprazole 40 MG TAB PO SCH ×2 (07:56→20:37)
[2019-10-29] MEDS: BuPROPion XL 300 MG TABCR PO SCH (07:56)
[2019-10-29] MEDS: ACETAMINOPHEN 325 MG TAB PO PRN ×2 (07:58→22:14)
[2019-10-29 08:07] LABS: Estimated Average Glucose 134 mg/dl; Hemoglobin A1C 6.3 % (4.5-5.6)
[2019-10-29 08:18] LABS: BUN Creatinine Ratio 16.7 (10-20); Calcium 8.8 mg/dl (8.5-10.1); Creatinine Clr Calc Pharmacy 61.5 ml/min; Est GFR (African American) 62.6; Potassium 3.8 mmol/L (3.5-5.1)
[2019-10-29] MEDS: ARMODAFINIL 150 MG PO SCH (08:38)
[2019-10-29] MEDS: CYCLOBENZAPRINE HCL 5 MG TAB PO PRN (12:54)
--- NOTE | 2019-10-29 20:09 | Hospitalist Progress Note ---
Date of Service October 29, 2019 Assessment & Plan (1) Asymptomatic hypertensive urgency: Hypertensive urgency ? Chronic HTN as LVH noted on Prior ECHO Likely situational--worsened secondary to pain Continue lisinopril Monitor Right hip/back pain ? Musculoskeletal in Origin Imaging studies showed no acute fractures Lumbar CT:Mild multilevel degenerative change with lower lumbar facet joint arthropathy and mild disc bulges. No acute fractures or traumatic subluxations Hip/Pelvic X ray:Mild degenerative change of the hips bilaterally. No acute process. Lumbar Spine X ray:Mild scoliosis. Osteopenia. Mild degenerative disc change. Appreciated Orthopedics Input PT/OT Pain Control Added Flexeril Consulted Dr. 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 Mood Disorder Stable Continue home medication Hyperlipidemia Continue statin DVT Px: Heparin SQ Code Status Full code Disposition PT OT prior to discharge Subjective Patient is seen and examined at bedside States right hip pain resolved Still has significant back pain with ambulation Discussed with orthopedics today Denies any chest pain, SOB, dizziness, nausea, abdominal pain Review of Systems Review of Systems: All systems reviewed & are unremarkable except as noted in HPI & below Physical Exam Physical Exam: Physical Exam: Vitals signs as noted above General Appearance:Obese, no apparent distress Head: normocephalic, Atraumatic Eyes: normal inspection, EOMI Neck: supple, Trachea midline Respiratory/Chest: Normal breath sounds, CTA Cardiovascular: S1, S2, No murmur Abdomen/GI:Soft, Non tender, Bowel sounds present Extremities/Musculoskelatal:normal inspection, no edema Spine--Lumbar paraspinal mild tender Neurologic/Psych:AAOX3, grossly no focal neurological deficits Skin: normal color, warm Results & Data Vital Signs (Past 12 Hours) Vital Signs Temp Pulse Pulse Resp BP BP Pulse Ox 10/29/19 19:40 36.3 C L 73 20 155/89 H 95 10/29/19 15:40 74 10/29/19 10:47 36.8 C 70 18 153/64 H 95 Laboratory Results Short CBC 10/29/19 Range/Units 07:29 WBC 8.30 (4.8-10.8) K/uL Hgb 13.0 (12.0-16.0) g/dL Hct 38.8 (37-47) % Plt Count 306 (130-400) K/uL BMP 10/29/19 07:29 Sodium 144 D Potassium 3.8 Chloride 112 H Carbon Dioxide 29 BUN 18 Creatinine 1.09 Glucose 90 Calcium 8.8
[2019-10-29] MEDS: lisinopriL 5 MG TAB PO SCH (20:37)
[2019-10-29] MEDS: lamoTRIgine 100 MG TAB PO SCH (20:38)
[2019-10-29] MEDS: HEPARIN SOD 5,000 UNIT/0.5 ML VIAL SQ SCH ×2 (22:08→22:10)
[2019-10-30] MEDS: PANTOprazole 40 MG TAB PO SCH ×2 (08:23→20:11)
[2019-10-30] MEDS: ARMODAFINIL 150 MG PO SCH (08:23)
[2019-10-30] MEDS: BuPROPion XL 300 MG TABCR PO SCH (08:23)
[2019-10-30] MEDS: CYANOCOBALAMIN 500 MCG TABLET (VITAMIN B-12) PO SCH (08:23)
[2019-10-30] MEDS: ATORVASTATIN 10 MG TAB PO SCH (08:23)
[2019-10-30] MEDS: PROMETHAZINE HCL 12.5 MG in SODIUM CHLORIDE 0.9% 50 ML IV PRN (08:49)
[2019-10-30] MEDS: MoRPHine SULFATE 4 MG/ML 1 ML CARP\\VIAL IV PRN (09:11)
[2019-10-30] MEDS: CYCLOBENZAPRINE HCL 5 MG TAB PO PRN (09:26)
[2019-10-30] MEDS: predniSONE 10 MG TABLET PO SCH (13:51)
[2019-10-30] MEDS: ACETAMINOPHEN 1,000 MG/100 ML VIAL IV PRN (17:23)
--- NOTE | 2019-10-30 18:45 | Hospitalist Progress Note ---
Date of Service October 30, 2019 Assessment & Plan (1) Asymptomatic hypertensive urgency: Hypertensive urgency ? Chronic HTN as LVH noted on Prior ECHO Likely situational--worsened secondary to pain Continue lisinopril Monitor BP Blood pressure variable likely secondary to pain Right hip/back pain ? Musculoskeletal in Origin/Disc diesase Imaging studies showed no acute fractures Lumbar CT:Mild multilevel degenerative change with lower lumbar facet joint arthropathy and mild disc bulges. No acute fractures or traumatic subluxations Hip/Pelvic X ray:Mild degenerative change of the hips bilaterally. No acute process. Lumbar Spine X ray:Mild scoliosis. Osteopenia. Mild degenerative disc change. Appreciated Orthopedics Input Continue PT/OT Pain Control Consulted Dr. Rodriguez--await for input Start on low-dose prednisone Prediabetes HbA1c 6.3 [place]inder Layer healthy lifestyle changes Mood Disorder Stable Continue home medication Hyperlipidemia Continue statin DVT Px: Heparin SQ Code Status Full code Disposition PT OT prior to discharge Subjective Patient is seen and examined at bedside Complains of significant back pain especially with ambulation and while standing No new complaints Denies any chest pain, SOB, dizziness, nausea, abdominal pain Review of Systems Review of Systems: All systems reviewed & are unremarkable except as noted in HPI & below Physical Exam Physical Exam: Physical Exam: Vitals signs as noted above General Appearance:Obese, no apparent distress Head: normocephalic, Atraumatic Eyes: normal inspection, EOMI Neck: supple, Trachea midline Respiratory/Chest: Normal breath sounds, CTA Cardiovascular: S1, S2, No murmur Abdomen/GI:Soft, Non tender, Bowel sounds present Extremities/Musculoskelatal:normal inspection, no edema Spine--Lumbar paraspinal mild tender Neurologic/Psych:AAOX3, grossly no focal neurological deficits Skin: normal color, warm Results & Data Vital Signs (Past 12 Hours) Vital Signs Temp Pulse Resp BP Pulse Ox 10/30/19 15:33 36.8 C 82 18 156/85 H 93 10/30/19 07:57 36.5 C 70 20 139/87 93
[2019-10-30] MEDS: lamoTRIgine 100 MG TAB PO SCH (20:11)
[2019-10-30] MEDS: HEPARIN SOD 5,000 UNIT/0.5 ML VIAL SQ SCH (20:11)
[2019-10-30] MEDS: lisinopriL 5 MG TAB PO SCH (20:14)
[2019-10-31] MEDS: ACETAMINOPHEN 1,000 MG/100 ML VIAL IV PRN (07:36)
[2019-10-31] MEDS: CYCLOBENZAPRINE HCL 5 MG TAB PO PRN (07:59)
[2019-10-31] MEDS: CYANOCOBALAMIN 500 MCG TABLET (VITAMIN B-12) PO SCH (08:04)
[2019-10-31] MEDS: predniSONE 10 MG TABLET PO SCH (08:04)
[2019-10-31] MEDS: PANTOprazole 40 MG TAB PO SCH ×2 (08:04→22:07)
[2019-10-31] MEDS: HEPARIN SOD 5,000 UNIT/0.5 ML VIAL SQ SCH ×2 (08:04→22:03)
[2019-10-31] MEDS: ARMODAFINIL 150 MG PO SCH (08:04)
[2019-10-31] MEDS: ATORVASTATIN 10 MG TAB PO SCH (08:04)
[2019-10-31] MEDS: BuPROPion XL 300 MG TABCR PO SCH (08:05)
[2019-10-31] MEDS: LIDOCAINE 5% 1 PATCH TD SCH (16:24)
[2019-10-31] MEDS ORDERED: ACETAMINOPHEN 325 MG TAB PO PRN (16:38)
[2019-10-31] MEDS: KETOROLAC TROMETHAMINE 15 MG/ML VIAL IV PRN ×2 (17:14→17:57)
[2019-10-31] MEDS ORDERED: AMLODIPINE BESYLATE 5 MG TAB PO ONE (17:24)
--- NOTE | 2019-10-31 17:28 | Hospitalist Progress Note ---
Date of Service October 31, 2019 Assessment & Plan (1) Asymptomatic hypertensive urgency: Hypertensive urgency ? Chronic HTN as LVH noted on Prior ECHO Likely situational--worsened secondary to pain Continue lisinopril--increase to 10 mg Added amlodipine 5 mg daily Monitor BP Right hip/back pain ? Musculoskeletal in Origin/Disc diesase Imaging studies showed no acute fractures Lumbar CT:Mild multilevel degenerative change with lower lumbar facet joint arthropathy and mild disc bulges. No acute fractures or traumatic subluxations Hip/Pelvic X ray:Mild degenerative change of the hips bilaterally. No acute process. Lumbar Spine X ray:Mild scoliosis. Osteopenia. Mild degenerative disc change. Appreciated Orthopedics Input Continue PT/OT Pain Control Consulted Dr. 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 Mood Disorder Stable Continue home medication Hyperlipidemia Continue statin DVT Px: Heparin SQ Code Status Full code Disposition PT OT prior to discharge Subjective Patient is seen and examined at bedside Continues to complain of significant back pain Blood pressure elevated but asymptomatic No new complaints Denies any chest pain, SOB, dizziness, nausea, abdominal pain Review of Systems Review of Systems: All systems reviewed & are unremarkable except as noted in HPI & below Physical Exam Physical Exam: Physical Exam: Vitals signs as noted above General Appearance:Obese, no apparent distress Head: normocephalic, Atraumatic Eyes: normal inspection, EOMI Neck: supple, Trachea midline Respiratory/Chest: Normal breath sounds, CTA Cardiovascular: S1, S2, No murmur Abdomen/GI:Soft, Non tender, Bowel sounds present Extremities/Musculoskelatal:normal inspection, no edema Spine--Lumbar paraspinal mild tender Neurologic/Psych:AAOX3, grossly no focal neurological deficits Skin: normal color, warm Results & Data Vital Signs (Past 12 Hours) Vital Signs Temp Pulse Resp BP Pulse Ox 10/31/19 15:46 36.5 C 98 H 20 175/99 H 91 10/31/19 07:17 36.5 C 79 18 162/97 H 93
[2019-10-31] MEDS ORDERED: lisinopriL 10 MG TAB PO SCH (21:00)
[2019-10-31] MEDS: lamoTRIgine 100 MG TAB PO SCH (22:08)
[2019-11-01] MEDS: KETOROLAC TROMETHAMINE 15 MG/ML VIAL IV PRN (00:48)
[2019-11-01 05:39] LABS: Hematocrit (blood only) 43.3 % (37-47); Hemoglobin 14.7 g/dL (12.0-16.0); Mean Corpuscular Hemoglobin 30.3 pg (25-34); Mean Corpuscular Hgb Conc 33.9 g/dL (32-36); Mean Corpuscular Volume 89.3 fL (80-100); Mean Platelet Volume 9.8 fL (7.4-10.4); Platelet Count 370 K/uL (130-400); RDW Coefficient of Variation 12.9 % (11.5-14.5); RDW Standard Deviation 41.5 fL (36.4-46.3); Red Blood Count 4.85 M/uL (4.2-5.4); White Blood Count 11.96 K/uL (4.8-10.8)
[2019-11-01 06:08] LABS: BUN Creatinine Ratio 22.5 (10-20); Calcium 9.3 mg/dl (8.5-10.1); Creatinine Clr Calc Pharmacy 58.3 ml/min; Est GFR (African American) 59.9; Est GFR (Non-African American) 51.7
[2019-11-01] MEDS: predniSONE 10 MG TABLET PO SCH (08:31)
[2019-11-01] MEDS: PANTOprazole 40 MG TAB PO SCH (08:32)
[2019-11-01] MEDS: CYANOCOBALAMIN 500 MCG TABLET (VITAMIN B-12) PO SCH (08:32)
[2019-11-01] MEDS: ATORVASTATIN 10 MG TAB PO SCH (08:32)
[2019-11-01] MEDS: BuPROPion XL 300 MG TABCR PO SCH (08:32)
[2019-11-01] MEDS: ARMODAFINIL 150 MG PO SCH (08:33)
[2019-11-01] MEDS: HEPARIN SOD 5,000 UNIT/0.5 ML VIAL SQ SCH (08:33)
[2019-11-01] MEDS: LIDOCAINE 5% 1 PATCH TD SCH (08:33)
[2019-11-01] MEDS ORDERED: AMLODIPINE BESYLATE 5 MG TAB PO SCH (09:00)
--- NOTE | 2019-11-01 13:33 | Consultation ---
Date of Consultation November 01, 2019 Assessment & Plan (1) Intractable back pain: Patient's pain is greatly improving. This appears to be muscular in origin. No acute surgical indications. She is neurologically intact and has no evidence of radiculopathy. Would recommend continuing with conservative treatment in the form of physical therapy. Could consider adding massage therapy. If her symptoms change and she starts to develop any type of radicular symptoms would consider MRI of the lumbar spine. Supervising Physician Co-Signing Physician Notes Dr. Wilmer Rodriguez History of Present Illness Is a pleasant 64-year-old female that we are asked to see in consultation regarding her lumbar spine. 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 This required repetitive bending, twisting, lifting,, changing positions from a seated to a standing position. This appears to be mechanical. she has no radicular complaints. Pain is localized to the right lumbar region. She does report she was enrolled in [facility] prior to her hospital admission. She feels this might have exacerbated her symptoms. Currently has a Lidoderm patch on which is helping improve her pain. The pain is greatly improved upon examination today then when she was admitted. Denies bowel or bladder dysfunction. Attending Physician: Prabhakar Mcneill MD Allergies Allergy/AdvReac Type Severity Reaction Status Date / Time oxybutynin Allergy Mild DRY MOUTH Verified 10/27/19 18:58 temazepam Allergy Mild DIDN'T Verified 10/27/19 18:58 HELP HER amitriptyline AdvReac Severe NON Verified 10/27/19 18:58 FUNCTIONING buspirone AdvReac Severe IMMOBILE Verified 10/27/19 18:58 paroxetine AdvReac Mild SHAKES Verified 10/27/19 18:58 Home Medications Home Medications Medication Instructions Recorded Confirmed Type alendronate [Fosamax] 70 mg PO WK 10/27/19 10/27/19 History armodafinil [Nuvigil] 150 mg PO DAILY 10/27/19 10/27/19 History ascorbic acid (vitamin C) [Vitamin 1 g PO DAILY 10/27/19 10/27/19 History C] atorvastatin [Lipitor] 10 mg PO DAILY 10/27/19 10/27/19 History bupropion HCl 300 mg PO DAILY 10/27/19 10/27/19 History calcium carbonate [Calcium 600] 600 mg PO DAILY 10/27/19 10/27/19 History cholecalciferol (vitamin D3) 400 unit PO DAILY 10/27/19 10/27/19 History [Vitamin D3] cyanocobalamin (vitamin B-12) 1,000 mcg PO DAILY 10/27/19 10/27/19 History [Vitamin B-12] guaifenesin [Mucinex] 600 mg PO Q12H PRN 10/27/19 10/27/19 History lamotrigine 200 mg PO HS 10/27/19 10/27/19 History pantoprazole [Protonix] 40 mg PO BID 10/27/19 10/27/19 History sodium chloride [Saline Nasal Mist] 1 spray INTRANASAL UD PRN 10/27/19 10/27/19 History trazodone 25 mg PO HS PRN 10/27/19 10/27/19 History triamcinolone acetonide [Nasacort] 1 - 2 spray INTRANASAL DAILY PRN 10/27/19 10/27/19 History Patient History Medical History Headache (Acute) Headache (Acute) Kidney stone (Resolved) Left leg pain (Acute) Malrotation of intestine (Resolved) Nausea and vomiting (Acute) Osteoporosis Family History Other No significant family history Social History Preferred Language: Cymro Communication Ability: Effective 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 She is alert and oriented x3. She is cooperative exam. She is in no obvious distress. She is able to roll over in bed with ease. She is Lidoderm patch over the right lumbar area. She is nontender to palpation over the sacroiliac regions bilaterally. Pain is localized to the paravertebral musculature on the right. Motor testing is 5 5 bilateral EHL, dorsiflexion, plantarflexion, quadriceps, hamstrings, hip flexors, hip abductor's and hip adductor's. Negative tension signs. Negative logrolling bilaterally. Constitutional: WD/WN, vitals as above Eyes: normal visual vaughn by confrontation ENMT: external ear and nose normal, oropharynx normal Neck: normal visual inspection Respiratory: normal respiratory effort Cardiovascular: Vessels: dorsalis pedis pulses present Extremities: normal capillary refill Gastrointestinal (Abdomen): Inspection/Auscultation: abdomen normal to inspection Musculoskeletal: no cyanosis or clubbing, extremities motor strength 5/5 Skin: no rashes, warm and dry Neurologic: patellar DTR's 2+ bilat, sensation intact deep tendon reflexes 2+ bilaterally and moves all extremities Psychiatric: A+Ox3, euthymic affect Results & Data Vital Signs (Past 12 Hours) Vital Signs Temp Pulse Resp BP Pulse Ox Pulse Ox 11/01/19 11:36 36.6 C 80 18 162/90 H 92 11/01/19 08:01 36.6 C 72 20 140/86 93 11/01/19 07:56 96 Diagnostic Findings [phone] CT Scan Report Patient: ELIAZAR MC Date: 10/27/19 MR#: [id number]: [address] Acct ID:[id number]: Date: [address] [place] [address] Zip: [place] [address] Age: 64Location: ED Sex: F Room/Bed: Att Phy:Diagnosis: HIP PAIN Juju Phy: Wilfredo Dominguez MD(FRANCISCO)Service Date: 10/27/19 [facility] Phy:Interpreting Phy: Waylon Frey MD Admit Phy: Ordering Phy: Hu Mendoza M.D. cc: ~ CT lumbar spine wo con CT DOSE: CLINICAL HISTORY: Low back and right flank pain TECHNIQUE: Helical images were acquired in transverse plane. Reformatted sagittal and coronal images were reviewed. A dose lowering technique was utilized adhering to the principles of ALARA. CONTRAST: No contrast was administered COMPARISON STUDY: None. FINDINGS: L1-2 level: There is no evidence of significant disc bulge or focal herniation. There is no evidence of spinal or foraminal stenosis. L2-3 level: There is no evidence of significant disc bulge or focal herniation. There is no evidence of spinal or foraminal stenosis. L3-4 level: There is a mild circumferential disc bulge. There is minimal spinal canal narrowing. There is moderate facet joint arthropathy L4-5 level: There is a minimal grade 1 spondylolisthesis of L4 and L5. There is facet joint arthropathy. There is a minimal disc bulge. There is mild spinal canal narrowing. There is no significant foraminal narrowing L5-S1 level: There is no evidence of significant disc bulge or focal herniation. There is no evidence of spinal or foraminal stenosis. No acute fractures or traumatic subluxations are visualized. No destructive lesions are evident. IMPRESSION: 1. Mild multilevel degenerative change with lower lumbar facet joint arthropathy and mild disc bulges 2. No acute fractures or traumatic subluxations ACT 112: Negative or not required by law. Electronically signed by: Waylon Frey M.D. 10/27/2019 8:29 PM Dictated: 10/27/192026 Transcribed: 10/27/192026 [place], [place] [phone] XRay Report Patient: ELIAZAR MC Date: 10/27/19 MR#: [id number]: [address] Acct ID:[id number]: Date: [address] [place] [address] Zip: [place] [address] Age: 64Location: 2W Sex: F Room/Bed: [facility] Att Phy: Prabhakar Mcneill, MDDiagnosis: HTN URGENCY Juju Phy: Wilfredo Dominguez MD(FRANCISCO)Service Date: 10/28/19 Fam Phy:Interpreting Phy: Kraig Ortega MD Admit Phy: Dexter Nix MD Ordering Phy: Nando Pavon M.D. cc: ~ XR lumbar spine 2-3V CLINICAL HISTORY: pain pain COMPARISON STUDY: No previous studies for comparison. FINDINGS: Mild scoliosis. Mild degenerative disc changes throughout. Vertebral body stature is normal. Osteopenia. IMPRESSION: Mild scoliosis. Osteopenia. Mild degenerative disc change. ACT 112: Negative or not required by law. The above report was generated using voice recognition software. It may contain grammatical, syntax or spelling errors. Electronically signed by: Kraig Ortega M.D. 10/28/2019 4:27 PM Dictated: 10/28/19 1183
--- NOTE | 2019-11-01 13:40 | Hospitalist Progress Note ---
Date of Service November 01, 2019 Assessment & Plan (1) Asymptomatic hypertensive urgency: Hypertensive urgency ? Chronic HTN as LVH noted on Prior ECHO Likely situational--worsened secondary to pain, steroids Continue lisinopril--increase to 10 mg Added amlodipine 5 mg daily Monitor BP Right hip/back pain Likely Musculoskeletal in Origin Imaging studies showed no acute fractures Lumbar CT:Mild multilevel degenerative change with lower lumbar facet joint arthropathy and mild disc bulges. No acute fractures or traumatic subluxations Hip/Pelvic X ray:Mild degenerative change of the hips bilaterally. No acute process. Lumbar Spine X ray:Mild scoliosis. Osteopenia. Mild degenerative disc change. 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 Mood Disorder Stable Continue home medication Hyperlipidemia Continue statin DVT Px: Heparin SQ Code Status Full code Disposition Plan to discharge home today Subjective Patient is seen and examined at bedside Back pain is much better Discussed with today no new complaints BP variable Denies any chest pain, SOB, dizziness, nausea, abdominal pain Family at bedside Review of Systems Review of Systems: All systems reviewed & are unremarkable except as noted in HPI & below Physical Exam Physical Exam: Physical Exam: Vitals signs as noted above General Appearance:Obese, no apparent distress Head: normocephalic, Atraumatic Eyes: normal inspection, EOMI Neck: supple, Trachea midline Respiratory/Chest: Normal breath sounds, CTA Cardiovascular: S1, S2, No murmur Abdomen/GI:Soft, Non tender, Bowel sounds present Extremities/Musculoskelatal:normal inspection, no edema Spine--Lumbar paraspinal mild tender Neurologic/Psych:AAOX3, grossly no focal neurological deficits Skin: normal color, warm Results & Data Vital Signs (Past 12 Hours) Vital Signs Temp Pulse Resp BP Pulse Ox Pulse Ox 11/01/19 11:36 36.6 C 80 18 162/90 H 92 11/01/19 08:01 36.6 C 72 20 140/86 93 11/01/19 07:56 96 Laboratory Results Short CBC 11/01/19 Range/Units 04:46 WBC 11.96 H (4.8-10.8) K/uL Hgb 14.7 (12.0-16.0) g/dL Hct 43.3 (37-47) % Plt Count 370 (130-400) K/uL BMP 11/01/19 04:46 Sodium 142 Potassium 4.0 Chloride 108 H Carbon Dioxide 28 BUN 25 H Creatinine 1.13 Glucose 94 Calcium 9.3
--- NOTE | 2019-11-01 14:10 | Discharge Summary ---
Date of Service November 01, 2019 Admission HPI Per Admitting Provider History obtained from patient and records. Medical history significant for mood disorder, hyperlipidemia, JOSÉ MIGUEL on CPAP, history of DVT as per records, prediabetes as per records, past tobacco abuse. 6 weeks ago patient noted achy left hip pain attributed to trochanteric bursitis and by insole buffer. Patient eventually went for outpatient physical therapy. 3 weeks ago, patient noted improvement of left hip pain and subsequent pain migration to the right hip. No lower extremity radiation. No fever, no chills. No incontinence. Intractable pain at the ER. 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 Admission Exam Per Admitting Provider Physical Exam Physical Exam: GENERAL: Slightly uncomfortable, obese, no respiratory distress SKIN: Normal color, warm HEENT: Bespectacled, [place] palpebral conjunctivae, no ptosis, moist buccal mucosa NECK : Supple, short neck, no tenderness CHEST : CTA, no tenderness HEART : RRR, no obvious murmurs ABDOMEN: Some distention, nontender EXTREMITIES : Minimal LE swelling, R hip tenderness, no other conspicuous deformities noted NEUROLOGIC : Coherent, no facial asymmetry, no other gross focality Principal Diagnosis Intractable back pain Hypertensive urgency Prediabetes Discharge Data Allergies Allergy/AdvReac Type Severity Reaction Status Date / Time oxybutynin Allergy Mild DRY MOUTH Verified 10/27/19 18:58 temazepam Allergy Mild DIDN'T Verified 10/27/19 18:58 HELP HER amitriptyline AdvReac Severe NON Verified 10/27/19 18:58 FUNCTIONING buspirone AdvReac Severe IMMOBILE Verified 10/27/19 18:58 paroxetine AdvReac Mild SHAKES Verified 10/27/19 18:58 Consultations 10/27/19 22:24 ED Decision to Admit Stat 10/28/19 00:55 Consult Case Management - Discharge Planning Routine Consult Orthopedic Surgery Routine 10/29/19 17:05 Consult Orthopedic Surgery Routine Procedures Performed Lumbar CT:Mild multilevel degenerative change with lower lumbar facet joint arthropathy and mild disc bulges. No acute fractures or traumatic subluxations Hip/Pelvic X ray:Mild degenerative change of the hips bilaterally. No acute process. Lumbar Spine X ray:Mild scoliosis. Osteopenia. Mild degenerative disc change. Ordered Studies 10/27/19 18:55 CT abd pelvis IV con only Stat CT lumbar spine wo con Stat Hospital Course (1) Asymptomatic hypertensive urgency: Hypertensive urgency ? Chronic HTN as LVH noted on Prior ECHO Likely situational--worsened secondary to pain, steroids Continue lisinopril--increase to 10 mg Added amlodipine 5 mg daily Monitor BP Right hip/back pain Likely Musculoskeletal in Origin Imaging studies showed no acute fractures Lumbar CT:Mild multilevel degenerative change with lower lumbar facet joint arthropathy and mild disc bulges. No acute fractures or traumatic subluxations Hip/Pelvic X ray:Mild degenerative change of the hips bilaterally. No acute process. Lumbar Spine X ray:Mild scoliosis. Osteopenia. Mild degenerative disc change. 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 Mood Disorder Stable Continue home medication Hyperlipidemia Continue statin DVT Px: Heparin SQ Code Status Full code Disposition Plan to discharge home today Total Time Total Time Spent Total Time Spent (In Minutes): 37 minutes Total Time Includes: Examination of the Patient, Discharge Planning, Medication Reconciliation, Communication With Other Providers and Other Discharge Plan Discharge Items Patient Disposition: Home - Self-Care Reason For Visit: HTN URGENCY Discharge Diagnosis: Intractable back pain Hypertensive urgency Prediabetes Activity: Per Instructions section Exercise/Sports: Gradually increase as tolerated Non-emergency contact: Primary Care Provider Call non-emergency contact if: you have any medication questions, your symptoms worsen, your pain is not controlled, your pain is worsening, your pain is unusual for you, your pain is concerning for you and you have a fever Follow-up/Referrals: Wilfredo Dominguez MD [Primary Care Provider] - Forest Squires MD [Outside Practitioners] - 11/02/19 10:45 am Diet: Heart Healthy Addtl Attending Provider Instructions: Follow-up with your primary physician Dr. Squires on November 02, 2019 at 10:45 AM Continue physical therapy as outpatient for your back pain. Consider following with orthopedic surgeon Dr. Rodriguez if symptoms do not resolve or worsen Your blood pressure is elevated during the hospital stay. Follow-up with your primary care physician for further adjustment of your medications to control your blood pressure. Pending Studies at Discharge: No Stand-Alone Forms: My [facility], Smoking Cessation Medications and DC Order Prescriptions: New cyclobenzaprine 5 mg Tablet 5 mg PO BID PRN (Reason: muscle spasm) Qty: 20 RF: 0 prednisone 10 mg Tablet 10 mg PO DAILY Qty: 2 RF: 0 amlodipine [Norvasc] 5 mg Tablet 5 mg PO QAM 30 Days Qty: 30 RF: 0 lisinopril 10 mg Tablet 10 mg PO HS Qty: 30 RF: 0 ketorolac 10 mg tablet 10 mg PO Q12H PRN (Reason: pain, severe) Qty: 10 RF: 0 Continued ascorbic acid (vitamin C) [Vitamin C] 1,000 mg Tablet 1 g PO DAILY RF: 0 lamotrigine 200 mg tablet 200 mg PO HS RF: 0 trazodone 50 mg Tablet 25 mg PO HS PRN (Reason: Insomnia) RF: 0 atorvastatin [Lipitor] 10 mg tablet 10 mg PO DAILY RF: 0 alendronate [Fosamax] 70 mg tablet 70 mg PO WK RF: 0 cyanocobalamin (vitamin B-12) [Vitamin B-12] 1,000 mcg Tablet 1,000 mcg PO DAILY RF: 0 calcium carbonate [Calcium 600] 600 mg calcium (1,500 mg) Tablet 600 mg PO DAILY RF: 0 pantoprazole [Protonix] 40 mg tablet,delayed release (DR/EC) 40 mg PO BID RF: 0 triamcinolone acetonide [Nasacort] 55 mcg Aerosol,[place] 1 - 2 spray INTRANASAL DAILY PRN (Reason: Nasal Congestion) RF: 0 cholecalciferol (vitamin D3) [Vitamin D3] 400 unit Capsule 400 unit PO DAILY RF: 0 sodium chloride [Saline Nasal Mist] 0.65 % Aerosol,[place] 1 spray INTRANASAL UD PRN (Reason: Nasal Congestion) RF: 0 bupropion HCl 300 mg tablet extended release 24 hr 300 mg PO DAILY RF: 0 armodafinil [Nuvigil] 150 mg tablet 150 mg PO DAILY RF: 0 guaifenesin [Mucinex] 600 mg Tablet Extended Release 12hr 600 mg PO Q12H PRN (Reason: Congestion) RF: 0 Discharge Orders: Discharge Order (Routine); Ordered 11/01/19 Ordered By: Prabhakar Meng/Other Patient Handouts: A1C Admission Data Admit Date/Time: 10/29/19 20:20 Attending Provider: Prahbakar Mcneill Admit Provider: Dexter Nix Primary Care Provider: Wilfredo Dominguez Other Providers: Dexter Nix ; Ambrose Goodwin ; Wilmer Rodriguez Other Interventions: Discharge Summary Assessment (RN) Last Done: 11/01/19 14:23 DC Date/Time DO NOT enter until pt leaves facility: 11/01/19 14:39
== END 2019-11-01 14:39 | disposition home or self-care (01) | DRG 305 ==
LOC: ED 18:00 → 2W 18:00 → 3W 11-01 01:18

== ENCOUNTER 2021-12-18 17:13 | Inpatient (IN) ==
[2021-12-18] MEDS ORDERED: ALBUT/IPRATROP 3MG/0.5MG NEB 3 ML VIAL NEB STA (18:20)
--- NOTE | 2021-12-18 18:24 | Emergency Department Note ---
Impression & Plan Hypoxia ADMIT ED Provider Note HPI: The patient is a 66-year-old female with history of bipolar disorder, hypertension, obstructive sleep apnea, presents the emergency department today after being evaluated as an outpatient and noted to be hypoxic in her physician's office. Patient states that she has had issues with generalized weakness and shortness of breath ever since she had COVID-19 diagnosis in October. She states that she seems to be weaker and more short of breath than usual. She was seen here in the emergency department several weeks ago and was evaluated by myself, she was placed on inhalers and was diagnosed with acute bronchitis following negative CT imaging of the chest. Patient states that her symptoms have not improved since her discharge then, states she continues to feel short of breath, on arrival here to the ED she was noted to be saturating at 89% when placed in the room and was placed on 2 L nasal cannula oxygen with good improvement in her saturations. She reportedly was hypoxic at 85% at her PCPs office prior to arrival here to the ED. 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 Patient was placed on nasal cannula oxygen with good improvement. IV was established, lab work obtained, lab work is generally unremarkable, troponin is negative x1, EKG does not show any ischemic changes. Does show evidence of first-degree block.CT angiography of the chest does not show any evidence of pulmonary embolism, there is evidence of what appears to be central vascular congestion, this is likely the source of the patient's hypoxia. Patient was given Lasix here in the ED and on my reassessment she states she does feel improved. Covid testing is negative, CT imaging of the chest does not show any evidence of pneumonia, patient does not have a leukocytosis. I discussed the above findings with the on-call hospitalist for [facility], Dr. Ruggiero, and the patient was admitted to a telemetry bed for further care. * CRITICAL CARE TIME: ( 33 ) minutes -Stabilization of hypoxia Oxygen saturation less than 90% on room air requiring supplemental oxygen to maintain oxygen saturations greater than 90% while here in the ED, time spent at the bedside, discussion with other physicians, arrangement of admission Diagnosis: 1.Hypoxia, acute 2.vascular congestion on CT imaging of the chest Disposition: Admission Kraig Arce DO Emergency Medicine Past Med/Surg History Medical History (Updated 12/18/21 @ 22:19 by Kraig Arce DO) Bipolar disorder Chronic kidney disease (CKD), stage III (moderate) Dyslipidemia GERD (gastroesophageal reflux disease) History of DVT (deep vein thrombosis) 2012: Provoked after foot surgery, completed 3 months of Coumadin therapy HTN (hypertension) Kidney stone JOSÉ MIGUEL on CPAP Prediabetes Surgical History H/O sinus surgery H/O tubal ligation History of appendectomy History of endometrial ablation Hx of tonsillectomy Family History Brother Heart disease Social History Smoking Status: Former smoker Tobacco Type: Cigarettes Second Hand Exposure: No; Hx Alcohol Use: No Hx Substance Use: No Preferred Language: Yemeni Communication Ability: Effective Visual Impairment: No Limitations Hearing Ability: Normal Store Stocker Required: No Beliefs That Will Affect Care: None marital status: Current Living Situation: Spouse Feels Safe at Home: Yes Assistive Devices: CPAP Allergies Allergies Allergy/AdvReac Type Severity Reaction Status Date / Time oxybutynin Allergy Mild DRY MOUTH Verified 12/18/21 20:03 temazepam Allergy Mild DIDN'T Verified 12/18/21 20:03 HELP HER amitriptyline AdvReac Severe NON Verified 12/18/21 20:03 FUNCTIONING buspirone AdvReac Severe IMMOBILE Verified 12/18/21 20:03 lisinopril AdvReac Severe Abdominal Verified 12/18/21 20:03 Pain paroxetine AdvReac Mild SHAKES Verified 12/18/21 20:03 Home Meds Home Medications Medication Instructions Recorded Confirmed ascorbic acid (vitamin C) 1,000 mg 1 g PO QAM 10/27/19 12/18/21 tablet (Vitamin C) atorvastatin 10 mg tablet (Lipitor) 10 mg PO QAM 10/27/19 12/18/21 calcium carbonate 600 mg calcium 600 mg PO QAM 10/27/19 12/18/21 (1,500 mg) tablet (Calcium) cholecalciferol (vitamin D3) 10 400 unit PO QAM 10/27/19 12/18/21 mcg (400 unit) capsule (Vitamin D3) cyanocobalamin (vitamin B-12) 1,000 mcg PO QAM 10/27/19 12/18/21 1,000 mcg tablet (Vitamin B-12) guaifenesin 600 mg tablet, 600 mg PO Q12H PRN 10/27/19 12/18/21 extended release 12 hr (Mucinex) lamotrigine 200 mg tablet 200 mg PO HS 10/27/19 12/18/21 pantoprazole 40 mg tablet,delayed 40 mg PO BID 10/27/19 12/18/21 release (Protonix) sodium chloride 0.65 % nasal spray 1 spray INTRANASAL UD PRN 10/27/19 12/18/21 aerosol (Saline Nasal Mist) trazodone 50 mg tablet 25 mg PO HS 10/27/19 12/18/21 ugbskcr-gwzsxfpeksguv-qszswthi 250 2 tab PO Q8 PRN 05/10/20 12/18/21 mg-250 mg-65 mg tablet (Excedrin Extra Strength) bupropion HCl 300 mg 24 hr tablet, 300 mg PO QAM 05/10/20 12/18/21 extended release (Wellbutrin XL) losartan 50 mg tablet 50 mg PO QAM 05/10/20 12/18/21 modafinil 100 mg tablet 100 mg PO DAILY 11/28/21 12/18/21 Previous Rx's Medication Instructions Recorded albuterol sulfate 90 mcg/actuation 1 inh INHALATION Q6H PRN #8.5 g 11/28/21 aerosol inhaler (ProAir HFA) Results & Data (ED) Vital Signs Vital Signs - 24 hr 12/18/21 17:29 12/18/21 18:18 12/18/21 18:22 Temperature 36.7 C Temperature Source Temporal Artery Scan Pulse Rate 81 73 81 Pulse Rate [Left] Pulse Rate from SpO2 Sensor 74 Pulse Rhythm Regular Regular Pulse Strength Normal Respiratory Rate 20 31 H 20 Respiratory Effort / Characteristics Non-Labored Spontaneous Respiratory Depth Normal Respiratory Pattern Regular Blood Pressure 156/84 H 170/102 H Blood Pressure [Right Arm] Blood Pressure Mean 108 124 Blood Pressure Mean [Right Arm] Blood Pressure Position Sitting Pulse Oximetry 92 95 89 L Oxygen Delivery Method Room Air Nasal Cannula Room Air Oxygen Flow Rate 2 0 Sepsis Recent Fever Within 48 Hours No Sepsis New/Unexplained Change in Mental Status N/A Sepsis Action Taken by Nursing No Action Required Oxygen Flow Rate - Titration 2 Pulse Oximetry Post Tiitration 95 12/18/21 19:13 Temperature Temperature Source Pulse Rate Pulse Rate [Left] 78 Pulse Rate from SpO2 Sensor Pulse Rhythm Pulse Strength Respiratory Rate 20 Respiratory Effort / Characteristics Respiratory Depth Normal Respiratory Pattern Blood Pressure Blood Pressure [Right Arm] 165/75 H Blood Pressure Mean Blood Pressure Mean [Right Arm] 105 Blood Pressure Position Pulse Oximetry 93 Oxygen Delivery Method Nasal Cannula Oxygen Flow Rate 2 Sepsis Recent Fever Within 48 Hours Sepsis New/Unexplained Change in Mental Status Sepsis Action Taken by Nursing Oxygen Flow Rate - Titration Pulse Oximetry Post Tiitration Laboratory Data Result diagrams: 12/18/21 18:15 12/18/21 18:15 Lab Results 12/18/21 12/18/21 12/18/21 Range/Units 18:15 18:15 18:15 WBC 7.09 (4.8-10.8) K/uL RBC 4.79 (4.2-5.4) M/uL Hgb 14.4 (12.0-16.0) g/dL Hct 43.0 (37-47) % MCV 89.8 (80-100) fL MCH 30.1 (25-34) pg MCHC 33.5 (32-36) g/dL RDW Std Deviation 43.1 (36.4-46.3) fL RDW Coeff of [place] 13.1 (11.5-14.5) % Plt Count 347 (130-400) K/uL MPV 9.8 (7.4-10.4) fL Immature Gran % (Auto) 0.1 % Neut % (Auto) 52.9 % Lymph % (Auto) 35.0 % [place] % (Auto) 8.0 % Eos % (Auto) 3.7 % Baso % (Auto) 0.3 % Neut # (Auto) 3.75 (1.4-6.5) K/uL Lymph # (Auto) 2.48 (1.2-3.4) K/uL [place] # (Auto) 0.57 (0.11-0.59) K/uL Eos # (Auto) 0.26 (0-0.5) K/uL Baso # (Auto) 0.02 (0-0.2) K/uL Immature Gran # (Auto) 0.01 (0.00-0.02) K/uL PT 10.3 (9.0-12.0) Seconds INR 1.0 (0.9-1.1) APTT 25.6 (21.0-31.0) Seconds PTT Ratio 0.9 Sodium 140 (136-145) mmol/L Potassium 3.6 (3.5-5.1) mmol/L Chloride 103 (98-107) mmol/L Carbon Dioxide 31 (21-32) mmol/L Anion Gap 6 (3-11) BUN 12 (6-23) mg/dl Creatinine 0.94 (0.6-1.2) mg/dl Est Cr Clr Drug Dosing 67.6 ml/min Est GFR ( Amer) 73.8 ml/min Est GFR (Non-Af Amer) 63.7 ml/min BUN/Creatinine Ratio 12.8 (10-20) Glucose 127 H (70-99(Fasting)) mg/dl Calcium 10.1 (8.5-10.1) mg/dl Magnesium 1.9 (1.7-2.4) mg/dl Total Bilirubin 0.5 (0.2-1.0) mg/dl AST 19 (13-39) U/L ALT 17 (7-52) U/L Alkaline Phosphatase 130 H (34-104) U/L Troponin I < 0.03 (0-0.04) ng/ml B-Natriuretic Peptide (0-100) pg/ml Total Protein 7.6 (6.0-8.3) gm/dl Albumin 4.3 (3.4-5.0) gm/dl Globulin 3.3 (2.5-4.0) gm/dl Albumin/Globulin Ratio 1.3 (0.9-2) Procalcitonin (0-0.5) ng/ml SARS-CoV-2, RNA, NAAT (NEGATIVE) 12/18/21 12/18/21 12/18/21 Range/Units 18:15 18:30 19:20 WBC (4.8-10.8) K/uL RBC (4.2-5.4) M/uL Hgb (12.0-16.0) g/dL Hct (37-47) % MCV (80-100) fL MCH (25-34) pg MCHC (32-36) g/dL RDW Std Deviation (36.4-46.3) fL RDW Coeff of Abbey (11.5-14.5) % Plt Count (130-400) K/uL MPV (7.4-10.4) fL Immature Gran % (Auto) % Neut % (Auto) % Lymph % (Auto) % [place] % (Auto) % Eos % (Auto) % Baso % (Auto) % Neut # (Auto) (1.4-6.5) K/uL Lymph # (Auto) (1.2-3.4) K/uL [place] # (Auto) (0.11-0.59) K/uL Eos # (Auto) (0-0.5) K/uL Baso # (Auto) (0-0.2) K/uL Immature Gran # (Auto) (0.00-0.02) K/uL PT (9.0-12.0) Seconds INR (0.9-1.1) APTT (21.0-31.0) Seconds PTT Ratio Sodium (136-145) mmol/L Potassium (3.5-5.1) mmol/L Chloride (98-107) mmol/L Carbon Dioxide (21-32) mmol/L Anion Gap (3-11) BUN (6-23) mg/dl Creatinine (0.6-1.2) mg/dl Est Cr Clr Drug Dosing ml/min Est GFR ( Amer) ml/min Est GFR (Non-Af Amer) ml/min BUN/Creatinine Ratio (10-20) Glucose (70-99(Fasting)) mg/dl Calcium (8.5-10.1) mg/dl Magnesium (1.7-2.4) mg/dl Total Bilirubin (0.2-1.0) mg/dl AST (13-39) U/L ALT (7-52) U/L Alkaline Phosphatase (34-104) U/L Troponin I (0-0.04) ng/ml B-Natriuretic Peptide 42 (0-100) pg/ml Total Protein (6.0-8.3) gm/dl Albumin (3.4-5.0) gm/dl Globulin (2.5-4.0) gm/dl Albumin/Globulin Ratio (0.9-2) Procalcitonin 0.05 (0-0.5) ng/ml SARS-CoV-2, RNA, NAAT NEGATIVE (NEGATIVE) Administered Medications Discontinued Medications Albuterol (Albut/Ipratrop 3mg/0.5mg Neb 3 Ml Vial) 3 ml NEB NOW STA; Protocol Stop: 12/18/21 18:21 Last Admin: 12/18/21 18:37 Dose: 3 ml Documented by: [id number] Furosemide (Furosemide 40 Mg/4 Ml Vial) 40 mg IV ONE ONE Stop: 12/18/21 19:08 Last Admin: 12/18/21 19:24 Dose: 40 mg Documented by: [id number] Ioversol (Optiray 320 125ml) 120 ml IV ONCE ONE Stop: 12/18/21 20:00 Last Admin: 12/18/21 20:00 Dose: 1 ml Documented by: [id number] Imaging Data Radiologist's Impression: Chest X-Ray 12/18/21 17:33 XR chest 1V portable CLINICAL HISTORY: SOB. COMPARISON STUDY: 11/28/2021 TECHNIQUE: 1 view of the chest FINDINGS: Single frontal view of the chest demonstrates the cardiomediastinal silhouette to be within normal limits. Compared to the previous examination, there is elise dence for mild central vascular congestion. There is no peripheral interstitial edema. There is no evidence for pleural effusion. There are no alveolar opacities. There is no acute osseous pathology. IMPRESSION: 1. Compared to the previous examination, there is mild central vascular congestion characteristic of early cardiac decompensation. ACT 112: Negative or not required by law. Electronically signed by: Paco Cobb M.D. 12/18/2021 6:31 PM Chest CTA 12/18/21 18:22 CT angio chest PE protocol CLINICAL HISTORY: Shortness of breath. Evaluate for pulmonary embolus. COMPARISON STUDY: 11/28/2021 and portable chest from 12/18/2021 CT DOSE: 545.96 mGy.cm TECHNIQUE: CT Angio of the chest was performed.followed by image post processing with coronal, and sagittal MIP reformats. Contrast Volume: Optiray 320, 120 ml FINDINGS: Vasculature: There is homogeneous perfusion of the pulmonary vasculature bilaterally. No intraluminal filling defects or evidence for pulmonary embolus is seen. Airway: The airway is clear. No endobronchial lesion is identified. Lungs: There is dependent edema at the lung bases bilaterally. Compared to the portable chest radiograph, there is evidence for mild central interstitial edema, again characteristic of early cardiac decompensation. The lungs are otherwise clear of acute alveolar opacities, air bronchograms or pulmonary nodul es. Pleura: There is no evidence for pleural effusion. There is no evidence for pneumothorax. Mediastinum: There is no evidence for pathologic adenopathy. The heart size is within normal limits. The thoracic aorta is within normal limits. There is no evidence for pericardial effusion. Osseous structures: There is no acute osseous pathology. Impression: 1. No CTA evidence for pulmonary embolus. 2. Compared to the portable chest radiograph, there is dependent edema at the lung bases posteriorly and mild central vascular congestion, again characteristic of early cardiac decompensation. ACT 112: Negative or not required by law. Electronically signed by: Paco Cobb M.D. 12/18/2021 8:31 PM Discharge Plan Visit Data Chief Complaint: Illness Stated Complaint: HYPOXIA, COUGH ED Provider: Kraig Arce Discharge Problem: Hypoxia Forms Stand Alone Forms: My [facility] Prescriptions Prescriptions: No Action ascorbic acid (vitamin C) [Vitamin C] 1,000 mg Tablet 1 g PO QAM RF: 0 lamotrigine 200 mg tablet 200 mg PO HS RF: 0 trazodone 50 mg Tablet 25 mg PO HS RF: 0 atorvastatin [Lipitor] 10 mg tablet 10 mg PO QAM RF: 0 cyanocobalamin (vitamin B-12) [Vitamin B-12] 1,000 mcg Tablet 1,000 mcg PO QAM RF: 0 calcium carbonate [Calcium 600] 600 mg calcium (1,500 mg) Tablet 600 mg PO QAM RF: 0 pantoprazole [Protonix] 40 mg tablet,delayed release (DR/EC) 40 mg PO BID RF: 0 cholecalciferol (vitamin D3) [Vitamin D3] 400 unit Capsule 400 unit PO QAM RF: 0 Saline Nasal Mist 0.65 % Aerosol,[place] 1 spray INTRANASAL UD PRN (Reason: Nasal Congestion) RF: 0 guaifenesin [Mucinex] 600 mg Tablet Extended Release 12hr 600 mg PO Q12H PRN (Reason: Congestion) RF: 0 losartan 50 mg Tablet 50 mg PO QAM RF: 0 Excedrin Extra Strength 250-250-65 mg Tablet 2 tab PO Q8 PRN (Reason: Headache) RF: 0 bupropion HCl [Wellbutrin XL] 300 mg tablet extended release 24 hr 300 mg PO QAM RF: 0 modafinil 100 mg tablet 100 mg PO DAILY RF: 0 albuterol sulfate [ProAir HFA] 90 mcg/actuation HFA aerosol inhaler 1 inh inhalation Q6H PRN (Reason: shortness of breath or wheezing) Qty: 8.5 RF: 0 Referrals Referrals: Jon Muse DO [Primary Care Provider] -
[2021-12-18 18:27] LABS: Basophils # (auto) 0.02 K/uL (0-0.2); Basophils % (auto) 0.3 %; Eosinophils # (auto) 0.26 K/uL (0-0.5); Eosinophils % (auto) 3.7 %; Hemoglobin 14.4 g/dL (12.0-16.0); Immature Granulocytes # (auto) 0.01 K/uL (0.00-0.02); Immature Granulocytes % (auto) 0.1 %; Lymphocytes # (auto) 2.48 K/uL (1.2-3.4); Mean Corpuscular Hemoglobin 30.1 pg (25-34); Mean Corpuscular Hgb Conc 33.5 g/dL (32-36); Mean Corpuscular Volume 89.8 fL (80-100); Mean Platelet Volume 9.8 fL (7.4-10.4); Monocytes # (auto) 0.57 K/uL (0.11-0.59); Neutrophils # (auto) 3.75 K/uL (1.4-6.5); Neutrophils % (auto) 52.9 %; Platelet Count 347 K/uL (130-400); RDW Coefficient of Variation 13.1 % (11.5-14.5); RDW Standard Deviation 43.1 fL (36.4-46.3); Red Blood Count 4.79 M/uL (4.2-5.4); White Blood Count 7.09 K/uL (4.8-10.8)
--- NOTE | 2021-12-18 18:32 | XRay Report ---
XR chest 1V portable CLINICAL HISTORY: SOB. COMPARISON STUDY: 11/28/2021 TECHNIQUE: 1 view of the chest FINDINGS: Single frontal view of the chest demonstrates the cardiomediastinal silhouette to be within normal li mits. Compared to the previous examination, there is evidence for mild central vascular congestion. T here is no peripheral interstitial edema. There is no evidence for pleural effusion. There are no marvel eolar opacities. There is no acute osseous pathology. IMPRESSION: 1. Compared to the previous examination, there is mild central vascular congestion characteristic of early cardiac decompensation. ACT 112: Negative or not required by law. Electronically signed by: Paco Cobb M.D. 12/18/2021 6:31 PM
[2021-12-18 18:42] LABS: Partial Thromboplastin Ratio 0.9; Partial Thromboplastin Time 25.6 Seconds (21.0-31.0); Prothrombin Time 10.3 Seconds (9.0-12.0)
[2021-12-18 18:46] LABS: Alanine Aminotransferase 17 U/L (7-52); Albumin Globulin Ratio 1.3 (0.9-2); Albumin Level 4.3 gm/dl (3.4-5.0); Alkaline Phosphatase 130 U/L (34-104); Anion Gap 6 (3-11); Aspartate Aminotransferase 19 U/L (13-39); BUN Creatinine Ratio 12.8 (10-20); Bilirubin,Total 0.5 mg/dl (0.2-1.0); Blood Urea Nitrogen 12 mg/dl (6-23); Calcium 10.1 mg/dl (8.5-10.1); Carbon Dioxide 31 mmol/L (21-32); Chloride 103 mmol/L (98-107); Creatinine Clr Calc Pharmacy 67.6 ml/min; Est GFR (African American) 73.8 ml/min; Est GFR (Non-African American) 63.7 ml/min; Globulin 3.3 gm/dl (2.5-4.0); Glucose 127 mg/dl (70-99(Fasting)); Magnesium 1.9 mg/dl (1.7-2.4); Potassium 3.6 mmol/L (3.5-5.1); Sodium 140 mmol/L (136-145); Total Protein 7.6 gm/dl (6.0-8.3)
[2021-12-18 18:48] LABS: Troponin I < 0.03 ng/ml (0-0.04)
[2021-12-18] MEDS ORDERED: FUROSEMIDE 40 MG/4 ML VIAL IV ONE (19:07)
[2021-12-18] MEDS ORDERED: OPTIRAY 320 125ml IV ONE (19:59)
--- NOTE | 2021-12-18 20:32 | CT Scan Report ---
CT angio chest PE protocol CLINICAL HISTORY: Shortness of breath. Evaluate for pulmonary embolus. COMPARISON STUDY: 11/28/2021 and portable chest from 12/18/2021 CT DOSE: 545.96 mGy.cm TECHNIQUE: CT Angio of the chest was performed.followed by image post processing with coronal, and s agittal MIP reformats. Contrast Volume: Optiray 320, 120 ml FINDINGS: Vasculature: There is homogeneous perfusion of the pulmonary vasculature bilaterally. No intraluminal filling defects or evidence for pulmonary embolus is seen. Airway: The airway is clear. No endobronchial lesion is identified. Lungs: There is dependent edema at the lung bases bilaterally. Compared to the portable chest radiogr aph, there is evidence for mild central interstitial edema, again characteristic of early cardiac dec ompensation. The lungs are otherwise clear of acute alveolar opacities, air bronchograms or pulmonary nodules. Pleura: There is no evidence for pleural effusion. There is no evidence for pneumothorax. Mediastinum: There is no evidence for pathologic adenopathy. The heart size is within normal limits. The thoracic aorta is within normal limits. There is no evidence for pericardial effusion. Osseous structures: There is no acute osseous pathology. Impression: 1. No CTA evidence for pulmonary embolus. 2. Compared to the portable chest radiograph, there is dependent edema at the lung bases posteriorly and mild central vascular congestion, again characteristic of early cardiac decompensation. ACT 112: Negative or not required by law. Electronically signed by: Paco Cobb M.D. 12/18/2021 8:31 PM
[2021-12-18] MEDS ORDERED: XOPENEX/ATROVENT 1.25mg/0.5MG NEB COMBO NEB PRN (23:28)
[2021-12-18] MEDS ORDERED: POLYETHYLENE (MIRALAX) 17 GM PACK PO PRN (23:28)
[2021-12-18] MEDS ORDERED: guaiFENesin 600 MG TABCR PO PRN (23:28)
[2021-12-18] MEDS ORDERED: SODIUM CHLORIDE 0.65% NA SOLN 45 ML (OCEAN) PRN (23:28)
[2021-12-18] MEDS ORDERED: ACETAMINOPHEN 325 MG TAB PO PRN (23:28)
[2021-12-18] MEDS ORDERED: NITROGLYCERIN SL 0.4 MG/TAB TAB SL PRN (23:28)
[2021-12-19] MEDS: ENOXAPARIN INJ 40 MG/0.4 ML SYR SQ SCH ×2 (00:13→20:12)
--- NOTE | 2021-12-19 00:17 | History and Physical Report ---
DATE OF ADMISSION: 12/18/2021 CHIEF COMPLAINT: Shortness of breath, hypoxia. HISTORY OF PRESENT ILLNESS: A 66-year-old female with past medical history significant for hyperlipidemia, prediabetes, history of sleep apnea, on CPAP, dyspnea on exertion, hypertension, GERD, stage III chronic kidney disease, osteoporosis, bipolar disorder, history of DVT. The patient says she had COVID in mid October this year. Comes with shortness of breath and found to be hypoxic. The patient says since COVID diagnosis, she is not feeling well, feeling weak, short of breath, she has dry cough and she went to PCP's office today because of ongoing symptoms and she was found to be 84% on room air and she was sent to the ER. In the ER, when she came in, she was 89% on room air and on oxygen 2 liters, she is saturating okay. She was seen on 11/27/2021 and treated with azithromycin and prednisone with no improvement and seen in the ED with CT chest with no evidence of PE or COVID pneumonia. She had COVID vaccine x2. The patient states she smoked quarter pack a day in a week for last 20 years, but she did not smoke for last about two months.In the ER her labs are okay. Her BNP is at 42. CTA chest showed no PE, but possible dependent edema in the lung base posteriorly and mild central vascular congestion characteristic of early cardiac decompensation and the patient received a dose of Lasix in the ER and neb in the ER. Currently, resting comfortably, but the patient states without oxygen she is not feeling good. She had felt hot last Friday, but currently no fever, no headache, no blurred visions, no earache, no runny nose, no sore throat, no nausea, no vomiting. Appetite is okay. No chest pain, no abdominal pain. Normal bowel and bladder movements. No swelling in the legs. ALLERGIES: OXYBUTYNIN, TEMAZEPAM, AMITRIPTYLINE, BUSPIRONE, LISINOPRIL, PAROXETINE. PAST MEDICAL HISTORY: As mentioned above. PAST SURGICAL HISTORY: Biopsy of the left breast, colonoscopies, dental surgery, EGD, sinus surgery, ablation of the endometrial lesion laparoscopic, diagnostic laparoscopy, ligation of the oviducts, appendectomy, tonsillectomy. MEDICATIONS: The patient is on albuterol 1 puff inhalation q. 6 hours p.r.n., vitamin C 1 gram p.o. daily, Lipitor 10 mg p.o. a.m., bupropion 300 mg p.o. a.m., calcium carbonate 600 mg p.o. a.m., vitamin D 400 units p.o. a.m., vitamin B12 1000 mcg p.o. daily, Mucinex 600 mg p.o. b.i.d. p.r.n., Lamictal 200 mg p.o. at bedtime, losartan 50 mg p.o. a.m., modafinil 100 mg p.o. daily, Protonix 40 mg p.o. b.i.d., trazodone 25 mg p.o. at bedtime. FAMILY HISTORY: Significant for father had kidney cancer, hiatal hernia, CHF; sister has breast cancer; brother of AIDS at age of 40; mother has diabetes type 1. SOCIAL HISTORY: , smoked an average of quarter pack a day in a week for the last 20 years, but did not smoke for the last 2 months. No alcohol use. No drug use. REVIEW OF SYSTEMS: As per HPI. Rest of the review of systems is negative. PHYSICAL EXAMINATION: GENERAL: The patient is obese, not in acute distress. VITAL SIGNS: Temperature 36.7, pulse 78, respiratory rate 20, blood pressure 160/75, oxygen 89% on room air, 93% with 2 liters. HEENT: Pupils equal, round and reactive to light. Oral mucosa moist. NECK: No JVD, no neck masses. CARDIOVASCULAR: S1 and S2 heard. Regular rate and rhythm. No murmur, no gallop. RESPIRATORY SYSTEM: Normal AP diameter. No accessory muscle use. No wheezing. Mild bibasilar crackles heard. ABDOMEN: Soft, bowel sounds present, nontender, no distention. CENTRAL NERVOUS SYSTEM: Cranial nerves II-XII grossly intact, nonfocal. EXTREMITIES: No edema, no erythema. LABORATORY DATA: WBC 7, hemoglobin 14.4, hematocrit 43, platelets 347. PT 10.3, INR 1, APTT 25.6. Sodium 140, potassium 3.6, chloride 103, bicarbonate 31, BUN 12, creatinine 0.9, serum glucose 127, calcium 10.1, magnesium 1.9, total bilirubin 0.5, AST 19, ALT 17, alkaline phosphatase 130. Troponin I less than 0.03. BNP 42. Procalcitonin 0.05. SARS-CoV-2 rapid test negative. IMAGING DATA: CTA of the chest, no CT evidence for pulmonary embolus. There is dependent edema of the lung base posteriorly and mild central vascular congestion again characteristic of early cardiac decompensation. Chest x-ray, just mild central vascular congestion. EKG: Sinus rhythm with first-degree AV block at a rate of 70. T-wave inversions in the anterior leads. ASSESSMENT AND PLAN: This is a 66-year-old female who presents with ongoing shortness of breath and found to be hypoxic. 1. Shortness of breath and hypoxia: Is 89% on room air, was 84% in the clinic today. On 2 liters, she is saturating okay. She is having symptoms since she was diagnosed of COVID in the middle of October. Currently CTA chest shows possible pulmonary congestion. BNP is low at 42. Received a dose of Lasix in the ER. Will follow the echocardiogram. Monitor in the [employer]. Consult cardiology in the a.m. for further recommendation. 2. Smoking: She smoked quarter pack a week for 20 years, but didn't not smoke for last 2 months. Encouraged to quit smoking. 3. Sleep apnea: On CPAP at bedtime. 4. Prediabetes: Follow HbA1c. Insulin sliding scale. 5. History of bipolar disorder: On Lamictal, bupropion, modafinil. 6. Hypertension: On losartan. Will monitor the blood pressure. 7. Hyperlipidemia: On statin. 8. Gastroesophageal reflux disease: On Protonix 9. Chronic kidney disease stage III: Presently with creatinine of 0.9. Will follow the labs. 10. Deep venous thrombosis prophylaxis: Will place on Lovenox. DISPOSITION: Monitor in the [employer] tele. PT/OT prior to discharge. Social service to help with discharge planning. Job ID: [id number] [facility]
[2021-12-19] MEDS ORDERED: ALBUTEROL HFA 8 GM INHALER INH PRN (00:28)
[2021-12-19 06:21] LABS: Basophils # (auto) 0.03 K/uL (0-0.2); Basophils % (auto) 0.4 %; Eosinophils # (auto) 0.27 K/uL (0-0.5); Eosinophils % (auto) 3.5 %; Hematocrit (blood only) 41.5 % (37-47); Hemoglobin 14.3 g/dL (12.0-16.0); Immature Granulocytes # (auto) 0.01 K/uL (0.00-0.02); Immature Granulocytes % (auto) 0.1 %; Lymphocytes # (auto) 2.22 K/uL (1.2-3.4); Lymphocytes % (auto) 28.9 %; Mean Corpuscular Hemoglobin 30.5 pg (25-34); Mean Corpuscular Hgb Conc 34.5 g/dL (32-36); Mean Corpuscular Volume 88.5 fL (80-100); Mean Platelet Volume 9.7 fL (7.4-10.4); Monocytes # (auto) 0.67 K/uL (0.11-0.59); Monocytes % (auto) 8.7 %; Neutrophils # (auto) 4.49 K/uL (1.4-6.5); Neutrophils % (auto) 58.4 %; Platelet Count 367 K/uL (130-400); RDW Coefficient of Variation 13.3 % (11.5-14.5); RDW Standard Deviation 42.8 fL (36.4-46.3); Red Blood Count 4.69 M/uL (4.2-5.4); White Blood Count 7.69 K/uL (4.8-10.8)
[2021-12-19 06:47] LABS: Troponin I 0.03 ng/ml (0-0.04)
[2021-12-19 06:52] LABS: BUN Creatinine Ratio 13.8 (10-20); Calcium 8.9 mg/dl (8.5-10.1); Creatinine Clr Calc Pharmacy 72.2 ml/min; Est GFR (Non-African American) 69.9 ml/min; Magnesium 1.8 mg/dl (1.7-2.4); Potassium 3.6 mmol/L (3.5-5.1)
[2021-12-19] MEDS: ASCORBIC ACID 500 MG TAB PO SCH (08:09)
[2021-12-19] MEDS: LOSARTAN POTASSIUM 50 MG TAB PO SCH (08:09)
[2021-12-19] MEDS: PANTOprazole 40 MG TAB PO SCH ×2 (08:09→20:13)
[2021-12-19] MEDS: CHOLECALCIFEROL 400 UNITS 10 MCG TAB PO SCH (08:09)
[2021-12-19] MEDS: CYANOCOBALAMIN (B-12) 500 MCG TABLET PO SCH (08:10)
[2021-12-19] MEDS: ATORVASTATIN 10 MG TAB PO SCH (08:10)
[2021-12-19] MEDS: buPROPion XL 300 MG TABCR PO SCH (08:10)
[2021-12-19] MEDS: CALCIUM CARBONATE 1250MG TAB PO SCH (08:12)
[2021-12-19] MEDS: modafiniL 100 MG TAB PO SCH (08:20)
--- NOTE | 2021-12-19 08:51 | Electrocardiogram Report ---
Test Reason : Blood Pressure : / mmHG Vent. Rate : 070 BPM Atrial Rate : 070 BPM P-R Int : 220 ms QRS Dur : 104 ms QT Int : 408 ms P-R-T Axes : 029 -29 012 degrees QTc Int : 440 ms Sinus rhythm with 1st degree A-V block Low voltage QRS Incomplete right bundle branch block Possible Old Anterolateral infarct (cited on or before 12-MAY-2020) Abnormal ECG When compared with ECG of 28-NOV-2021 21:01, No significant change Confirmed by Forest Bermudez ([id number]) on 12/19/2021 8:50:48 AM Referred By: Jon Muse Confirmed By:Forest Bermudez
[2021-12-19] MEDS ORDERED: FUROSEMIDE 40 MG/4 ML VIAL IV ONE (10:11)
[2021-12-19] MEDS ORDERED: POTASSIUM CHLORIDE CRTAB 20 MEQ TABCR PO ONE (10:12)
--- NOTE | 2021-12-19 12:14 | Cardiology Consultation ---
Date of Consultation December 19, 2021 Assessment & Plan (1) Hypoxia: (2) Pulmonary edema: (3) History of COVID-19: Patient admitted for SOB/Hypoxia and findings consistent with pulm edema on chest xray/chest CTA. No Pulmonary embolus. Likely this is residual effects from prior COVID infection and prior COVID pneumonia in Oct/Nov 2021. Cough and wheeze suggestive of ongoing bronchitis. Normal BNP and she does not examine as hypervolemic/acute CHF exacerbation, other than mild rales at bases of her lungs, consistent with pulm edema. Her echo is normal. Recommend ongoing use of furosemide IV with an additional dose at this time and supplement potassium. Continue inhaler/nebs and consider resuming steroids to aid with symptoms. Wean oxygen as tolerated. Case discussed with Dr. James. Supervising Physician Co-Signing Physician Notes I have seen and evaluated the patient. Reviewed the medical record and discussed the case with Mckay. I agree with the plan as outlined above. History of Present Illness Reason for Consultation: SOB; Hypoxia Requesting Physician: Dr. Ruggiero Attending Physician: Dr. James History of Present Illness Patient is a 66 year old female admitted to [facility] yesterday after being sent from PCP office for complaints of SOB, hypoxia. She had COVID in October and feels she never full recovered from a respiratory standpoint. She did not require hospitalization or treatment at that time. In Nov, she was evaluated by PCP office and ER for complaints of ongoing SOB/cough/fever. Diagnosed with COVID pneumonia and treated with antibiotics and steroids. Her symptoms improved over the course of 1-2 weeks with therapy. Unfortunately over the last few days her symptoms once again worsened with ongoing cough, SOB and found to be hypoxic. She was subsequently sent to ER for evaluation. Started on supplemental O2 and received dose IV lasix. Chest xray consistent with mild pulm vascular congestion. Chest CTA without evidence of PE. 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 Echo at that time was normal LV function, no wall motion abnormalities and Grade I diastolic dysfunction. other history includes obesity, hypertension, dyslipidemia. At time of consult, patient resting in bed with ongoing SOB, cough. She reports feeling mildly improved last evening after one dose IV lasix. Still requiring supplemental O2. No chest pain. She denies recent orthopnea, PND or edema. No sudden weight gain. No fever or chills. Allergies Allergy/AdvReac Type Severity Reaction Status Date / Time oxybutynin Allergy Mild DRY MOUTH Verified 12/18/21 20:03 temazepam Allergy Mild DIDN'T Verified 12/18/21 20:03 HELP HER amitriptyline AdvReac Severe NON Verified 12/18/21 20:03 FUNCTIONING buspirone AdvReac Severe IMMOBILE Verified 12/18/21 20:03 lisinopril AdvReac Severe Abdominal Verified 12/18/21 20:03 Pain paroxetine AdvReac Mild SHAKES Verified 12/18/21 20:03 Home Medications Medication Instructions Recorded Confirmed Type ascorbic acid (vitamin C) 1,000 mg 1 g PO QAM 10/27/19 12/18/21 History tablet (Vitamin C) atorvastatin 10 mg tablet (Lipitor) 10 mg PO QAM 10/27/19 12/18/21 History calcium carbonate 600 mg calcium 600 mg PO QAM 10/27/19 12/18/21 History (1,500 mg) tablet (Calcium) cholecalciferol (vitamin D3) 10 400 unit PO QAM 10/27/19 12/18/21 History mcg (400 unit) capsule (Vitamin D3) cyanocobalamin (vitamin B-12) 1,000 mcg PO QAM 10/27/19 12/18/21 History 1,000 mcg tablet (Vitamin B-12) guaifenesin 600 mg tablet, 600 mg PO Q12H PRN 10/27/19 12/18/21 History extended release 12 hr (Mucinex) lamotrigine 200 mg tablet 200 mg PO HS 10/27/19 12/18/21 History pantoprazole 40 mg tablet,delayed 40 mg PO BID 10/27/19 12/18/21 History release (Protonix) sodium chloride 0.65 % nasal spray 1 spray INTRANASAL UD PRN 10/27/19 12/18/21 History aerosol (Saline Nasal Mist) trazodone 50 mg tablet 25 mg PO HS 10/27/19 12/18/21 History kjkmtwv-sffvkwjqkgcmw-ewwuepot 250 2 tab PO Q8 PRN 05/10/20 12/18/21 History mg-250 mg-65 mg tablet (Excedrin Extra Strength) bupropion HCl 300 mg 24 hr tablet, 300 mg PO QAM 05/10/20 12/18/21 History extended release (Wellbutrin XL) losartan 50 mg tablet 50 mg PO QAM 05/10/20 12/18/21 History albuterol sulfate 90 mcg/actuation 1 inh INHALATION Q6H PRN #8.5 g 11/28/21 12/18/21 Rx aerosol inhaler (ProAir HFA) modafinil 100 mg tablet 100 mg PO DAILY 11/28/21 12/18/21 History Patient History Medical History (Updated 12/19/21 @ 12:39 by Tatianna Bashir PA-C) Bipolar disorder Chronic kidney disease (CKD), stage III (moderate) Dyslipidemia GERD (gastroesophageal reflux disease) History of DVT (deep vein thrombosis) 2012: Provoked after foot surgery, completed 3 months of Coumadin therapy HTN (hypertension) Kidney stone JOSÉ MIGUEL on CPAP Prediabetes Surgical History H/O sinus surgery H/O tubal ligation History of appendectomy History of endometrial ablation Hx of tonsillectomy Family History Brother Heart disease Social History Smoking Status: Current some day smoker Tobacco Type: Cigarettes Cigarettes Per Day: Patient states she smokes 3-6 a day when she visits her sister; Smoking End Date: 2021; Second Hand Exposure: No; Do You Dip or Chew Tobacco: No; Hx Alcohol Use: No Hx Substance Use: No Preferred Language: Kittitian Communication Ability: Effective Visual Impairment: No Limitations Hearing Ability: Normal Mailroom Messenger Required: No Beliefs That Will Affect Care: None marital status: Current Living Situation: Spouse How many Children do You have: 2 Feels Safe at Home: Yes Safety Concerns: Feels Safe At This Time Assistive Devices: None Review of Systems Review of Systems: All systems reviewed & are unremarkable except as noted in HPI & below Physical Exam Constitutional: WD/WN, vitals as above well nourished and + obese; no acute distress Eyes: PERRL, conjunctivae normal, anicteric sclerae ENMT: external ear and nose normal, oropharynx normal Respiratory: + cough and able to speak in complete sentences (but mild conversational dyspnea noted. ) Auscultation: + crackles (bibasilar) Cardiovascular: Rate/Rhythm: regular rate and regular rhythm Heart Sounds: normal S1 and normal S2; no murmur Vessels: no JVD Extremities: no edema Gastrointestinal (Abdomen): normal bowel sounds, soft, nontender, no hepatosplenomegaly Musculoskeletal: no cyanosis or clubbing, extremities motor strength 5/5 Skin: no rashes, warm and dry Neurologic: PERRL, EOMI, accommodation nl, no face palsy, no dysarthria Psychiatric: A+Ox3, euthymic affect Results & Data ([facility]) Vital Signs (Past 12 Hours) Vital Signs Temp Pulse Pulse Pulse Resp BP Pulse Ox 12/19/21 10:47 36.5 C 72 16 132/76 93 12/19/21 07:13 36.5 C 68 16 131/84 92 12/19/21 07:11 66 12/19/21 03:19 36.5 C 76 20 131/78 91 12/19/21 00:35 84 12/19/21 00:19 37.1 C 70 22 150/80 H 93 Laboratory Results 12/19/21 12/19/21 12/19/21 Range/Units 11:34 07:27 05:27 WBC 7.69 (4.8-10.8) K/uL RBC 4.69 (4.2-5.4) M/uL Hgb 14.3 (12.0-16.0) g/dL Hct 41.5 (37-47) % MCV 88.5 (80-100) fL MCH 30.5 (25-34) pg MCHC 34.5 (32-36) g/dL RDW Std Deviation 42.8 (36.4-46.3) fL RDW Coeff of Abbey 13.3 (11.5-14.5) % Plt Count 367 (130-400) K/uL MPV 9.7 (7.4-10.4) fL Immature Gran % (Auto) 0.1 % Neut % (Auto) 58.4 % Lymph % (Auto) 28.9 % Moffat % (Auto) 8.7 % Eos % (Auto) 3.5 % Baso % (Auto) 0.4 % Neut # (Auto) 4.49 (1.4-6.5) K/uL Lymph # (Auto) 2.22 (1.2-3.4) K/uL Moffat # (Auto) 0.67 H (0.11-0.59) K/uL Eos # (Auto) 0.27 (0-0.5) K/uL Baso # (Auto) 0.03 (0-0.2) K/uL Immature Gran # (Auto) 0.01 (0.00-0.02) K/uL PT (9.0-12.0) Seconds INR (0.9-1.1) APTT (21.0-31.0) Seconds PTT Ratio Sodium (136-145) mmol/L Potassium (3.5-5.1) mmol/L Chloride (98-107) mmol/L Carbon Dioxide (21-32) mmol/L Anion Gap (3-11) BUN (6-23) mg/dl Creatinine (0.6-1.2) mg/dl Est Cr Clr Drug Dosing ml/min Est GFR ( Amer) ml/min Est GFR (Non-Af Amer) ml/min BUN/Creatinine Ratio (10-20) Glucose (70-99(Fasting)) mg/dl POC Glucose 110 H 149 H (70-99) mg/dl Calcium (8.5-10.1) mg/dl Magnesium (1.7-2.4) mg/dl Total Bilirubin (0.2-1.0) mg/dl AST (13-39) U/L ALT (7-52) U/L Alkaline Phosphatase (34-104) U/L Troponin I (0-0.04) ng/ml B-Natriuretic Peptide (0-100) pg/ml Total Protein (6.0-8.3) gm/dl Albumin (3.4-5.0) gm/dl Globulin (2.5-4.0) gm/dl Albumin/Globulin Ratio (0.9-2) Procalcitonin (0-0.5) ng/ml SARS-CoV-2, RNA, NAAT (NEGATIVE) 12/19/21 12/18/21 12/18/21 Range/Units 05:27 19:20 18:30 WBC (4.8-10.8) K/uL RBC (4.2-5.4) M/uL Hgb (12.0-16.0) g/dL Hct (37-47) % MCV (80-100) fL MCH (25-34) pg MCHC (32-36) g/dL RDW Std Deviation (36.4-46.3) fL RDW Coeff of Abbey (11.5-14.5) % Plt Count (130-400) K/uL MPV (7.4-10.4) fL Immature Gran % (Auto) % Neut % (Auto) % Lymph % (Auto) % Moffat % (Auto) % Eos % (Auto) % Baso % (Auto) % Neut # (Auto) (1.4-6.5) K/uL Lymph # (Auto) (1.2-3.4) K/uL Moffat # (Auto) (0.11-0.59) K/uL Eos # (Auto) (0-0.5) K/uL Baso # (Auto) (0-0.2) K/uL Immature Gran # (Auto) (0.00-0.02) K/uL PT (9.0-12.0) Seconds INR (0.9-1.1) APTT (21.0-31.0) Seconds PTT Ratio Sodium 140 (136-145) mmol/L Potassium 3.6 (3.5-5.1) mmol/L Chloride 103 (98-107) mmol/L Carbon Dioxide 29 (21-32) mmol/L Anion Gap 8 (3-11) BUN 12 (6-23) mg/dl Creatinine 0.87 (0.6-1.2) mg/dl Est Cr Clr Drug Dosing 72.2 ml/min Est GFR ( Amer) 81.0 ml/min Est GFR (Non-Af Amer) 69.9 ml/min BUN/Creatinine Ratio 13.8 (10-20) Glucose 105 H (70-99(Fasting)) mg/dl POC Glucose (70-99) mg/dl Calcium 8.9 (8.5-10.1) mg/dl Magnesium 1.8 (1.7-2.4) mg/dl Total Bilirubin (0.2-1.0) mg/dl AST (13-39) U/L ALT (7-52) U/L Alkaline Phosphatase (34-104) U/L Troponin I 0.03 (0-0.04) ng/ml B-Natriuretic Peptide 42 (0-100) pg/ml Total Protein (6.0-8.3) gm/dl Albumin (3.4-5.0) gm/dl Globulin (2.5-4.0) gm/dl Albumin/Globulin Ratio (0.9-2) Procalcitonin (0-0.5) ng/ml SARS-CoV-2, RNA, NAAT NEGATIVE (NEGATIVE) 12/18/21 12/18/21 12/18/21 Range/Units 18:15 18:15 18:15 WBC (4.8-10.8) K/uL RBC (4.2-5.4) M/uL Hgb (12.0-16.0) g/dL Hct (37-47) % MCV (80-100) fL MCH (25-34) pg MCHC (32-36) g/dL RDW Std Deviation (36.4-46.3) fL RDW Coeff of Abbey (11.5-14.5) % Plt Count (130-400) K/uL MPV (7.4-10.4) fL Immature Gran % (Auto) % Neut % (Auto) % Lymph % (Auto) % Moffat % (Auto) % Eos % (Auto) % Baso % (Auto) % Neut # (Auto) (1.4-6.5) K/uL Lymph # (Auto) (1.2-3.4) K/uL Moffat # (Auto) (0.11-0.59) K/uL Eos # (Auto) (0-0.5) K/uL Baso # (Auto) (0-0.2) K/uL Immature Gran # (Auto) (0.00-0.02) K/uL PT 10.3 (9.0-12.0) Seconds INR 1.0 (0.9-1.1) APTT 25.6 (21.0-31.0) Seconds PTT Ratio 0.9 Sodium 140 (136-145) mmol/L Potassium 3.6 (3.5-5.1) mmol/L Chloride 103 (98-107) mmol/L Carbon Dioxide 31 (21-32) mmol/L Anion Gap 6 (3-11) BUN 12 (6-23) mg/dl Creatinine 0.94 (0.6-1.2) mg/dl Est Cr Clr Drug Dosing 67.6 ml/min Est GFR ( Amer) 73.8 ml/min Est GFR (Non-Af Amer) 63.7 ml/min BUN/Creatinine Ratio 12.8 (10-20) Glucose 127 H (70-99(Fasting)) mg/dl POC Glucose (70-99) mg/dl Calcium 10.1 (8.5-10.1) mg/dl Magnesium 1.9 (1.7-2.4) mg/dl Total Bilirubin 0.5 (0.2-1.0) mg/dl AST 19 (13-39) U/L ALT 17 (7-52) U/L Alkaline Phosphatase 130 H (34-104) U/L Troponin I < 0.03 (0-0.04) ng/ml B-Natriuretic Peptide (0-100) pg/ml Total Protein 7.6 (6.0-8.3) gm/dl Albumin 4.3 (3.4-5.0) gm/dl Globulin 3.3 (2.5-4.0) gm/dl Albumin/Globulin Ratio 1.3 (0.9-2) Procalcitonin 0.05 (0-0.5) ng/ml SARS-CoV-2, RNA, NAAT (NEGATIVE) 12/18/21 Range/Units 18:15 WBC 7.09 (4.8-10.8) K/uL RBC 4.79 (4.2-5.4) M/uL Hgb 14.4 (12.0-16.0) g/dL Hct 43.0 (37-47) % MCV 89.8 (80-100) fL MCH 30.1 (25-34) pg MCHC 33.5 (32-36) g/dL RDW Std Deviation 43.1 (36.4-46.3) fL RDW Coeff of Abbey 13.1 (11.5-14.5) % Plt Count 347 (130-400) K/uL MPV 9.8 (7.4-10.4) fL Immature Gran % (Auto) 0.1 % Neut % (Auto) 52.9 % Lymph % (Auto) 35.0 % Moffat % (Auto) 8.0 % Eos % (Auto) 3.7 % Baso % (Auto) 0.3 % Neut # (Auto) 3.75 (1.4-6.5) K/uL Lymph # (Auto) 2.48 (1.2-3.4) K/uL Moffat # (Auto) 0.57 (0.11-0.59) K/uL Eos # (Auto) 0.26 (0-0.5) K/uL Baso # (Auto) 0.02 (0-0.2) K/uL Immature Gran # (Auto) 0.01 (0.00-0.02) K/uL PT (9.0-12.0) Seconds INR (0.9-1.1) APTT (21.0-31.0) Seconds PTT Ratio Sodium (136-145) mmol/L Potassium (3.5-5.1) mmol/L Chloride (98-107) mmol/L Carbon Dioxide (21-32) mmol/L Anion Gap (3-11) BUN (6-23) mg/dl Creatinine (0.6-1.2) mg/dl Est Cr Clr Drug Dosing ml/min Est GFR ( Amer) ml/min Est GFR (Non-Af Amer) ml/min BUN/Creatinine Ratio (10-20) Glucose (70-99(Fasting)) mg/dl POC Glucose (70-99) mg/dl Calcium (8.5-10.1) mg/dl Magnesium (1.7-2.4) mg/dl Total Bilirubin (0.2-1.0) mg/dl AST (13-39) U/L ALT (7-52) U/L Alkaline Phosphatase (34-104) U/L Troponin I (0-0.04) ng/ml B-Natriuretic Peptide (0-100) pg/ml Total Protein (6.0-8.3) gm/dl Albumin (3.4-5.0) gm/dl Globulin (2.5-4.0) gm/dl Albumin/Globulin Ratio (0.9-2) Procalcitonin (0-0.5) ng/ml SARS-CoV-2, RNA, NAAT (NEGATIVE) Diagnostic Findings Telemetry reviewed - NSR in the 80's, No arrhythmias. Echo report reviewed completed 12/18/21: Grossly normal valvular structure and function LV is grossly normal in size LV systolic function is normal. EF 55-60% RV systolic function is normal LA size is normal RA size is normal. EKG on admission NSR with incomplete RBBB T wave inversion in anterior leads Compared with prior EKG inpatient/outpatient, no significant changes noted. Chest CTA on admission: Impression: 1. No CTA evidence for pulmonary embolus. 2. Compared to the portable chest radiograph, there is dependent edema at the lung bases posteriorly and mild central vascular congestion, again characteristic of early cardiac decompensation. Chest xray on admission: IMPRESSION: 1. Compared to the previous examination, there is mild central vascular congestion characteristic of early cardiac decompensation. Prior cardiac cath in April 2020: Summary: The right coronary artery is hyperdominant with the left circumflex artery being anomalous from the distal portion of the right coronary artery. The right and left coronary arteries are widely patent and otherwise within normal limits. Recommendations: The recommendations are for continued risk factor modification. Medications Administered Current Inpatient Medications Acetaminophen (Acetaminophen 325 Mg Tab) 650 mg PO Q4H PRN PRN Reason: Pain or Fever Stop: 01/17/22 23:27 Albuterol (Albuterol Hfa 8 Gm Inhaler) 1 puffs INH Q6H PRN PRN Reason: shortness of breath or wheezing Stop: 01/18/22 00:27 Ascorbic Acid (Ascorbic Acid 500 Mg Tab) [facility] Stop: 01/18/22 08:59 Last Admin: 12/19/21 08:09 Dose: 1,000 mg Documented by: Atorvastatin Calcium (Atorvastatin 10 Mg Tab) [facility] Stop: 01/18/22 08:59 Last Admin: 12/19/21 08:10 Dose: 10 mg Documented by: Bupropion HCl (Bupropion Xl 300 Mg Tabcr) 300 mg PO QAM [facility] Stop: 01/18/22 08:59 Last Admin: 12/19/21 08:10 Dose: 300 mg Documented by: Calcium Carbonate (Calcium Carbonate 1250mg Tab) 1,250 mg PO QAM [facility] Stop: 01/18/22 08:59 Last Admin: 12/19/21 08:12 Dose: Not Given Documented by: Cyanocobalamin (Cyanocobalamin (B-12) 500 Mcg Tablet) 1,000 mcg PO QAM [facility] Stop: 01/18/22 08:59 Last Admin: 12/19/21 08:10 Dose: 1,000 mcg Documented by: Enoxaparin Sodium (Enoxaparin Inj 40 Mg/0.4 Ml Syr) 40 mg SQ HS [facility] Stop: 01/18/22 00:00 Last Admin: 12/19/21 00:13 Dose: Not Given Documented by: Guaifenesin (Guaifenesin 600 Mg Tabcr) 600 mg PO Q12H PRN PRN Reason: Congestion Stop: 01/17/22 23:27 Last Admin: 12/19/21 08:11 Dose: 600 mg Documented by: Ipratropium [place] (Ipratropium [place] Neb Soln 0.02% 2.5 Ml Vial) 0.5 mg INH Q4H PRN PRN Reason: sob/wheezing Stop: 01/17/22 23:27 Lamotrigine (Lamotrigine 100 Mg Tab) 200 mg PO HS [facility] Stop: 01/18/22 20:59 Levalbuterol HCl (Levalbuterol 1.25mg/0.5ml Neb) 1.25 mg INH Q4H PRN PRN Reason: sob/wheezing Stop: 01/17/22 23:27 Losartan Potassium (Losartan Potassium 50 Mg Tab) 50 mg PO QAM [facility] Stop: 01/18/22 08:59 Last Admin: 12/19/21 08:09 Dose: 50 mg Documented by: Modafinil (Modafinil 100 Mg Tab) 100 mg PO Q24H [facility] Stop: 01/18/22 08:59 Last Admin: 12/19/21 08:20 Dose: 100 mg Documented by: Nitroglycerin (Nitroglycerin Sl 0.4 Mg/Tab Tab) 0.4 mg SL UD PRN PRN Reason: Chest Pain Stop: 01/17/22 23:27 Pantoprazole Sodium (Pantoprazole 40 Mg Tab) 40 mg PO BID [facility] Stop: 01/18/22 08:59 Last Admin: 12/19/21 08:09 Dose: 40 mg Documented by: Polyethylene Glycol (Polyethylene (Miralax) 17 Gm Pack) 17 gm PO DAILY PRN PRN Reason: Constipation Stop: 01/17/22 23:27 Sodium Chloride (Sodium Chloride 0.65% Na Soln 45 Ml ([place])) 1 sprays NA UD PRN PRN Reason: Nasal Congestion Stop: 01/17/22 23:27 Trazodone HCl (Trazodone Hcl 50 Mg Tab) 25 mg PO [facility] Stop: 01/18/22 20:59 Vitamin D (Cholecalciferol 400 Units 10 Mcg Tab) 400 units PO [facility] Stop: 01/18/22 08:59 Last Admin: 12/19/21 08:09 Dose: 400 units Documented by:
--- NOTE | 2021-12-19 16:50 | Hospitalist Progress Note ---
Date of Service December 19, 2021 Assessment & Plan (1) History of COVID-19: (2) Pulmonary edema: (3) Hypoxia: Plan: Present on admission with worsening SOB CTA chest showed no evidence of PE. dependent edema at the lung bases posteriorly and mild central vascular congestion, again characteristic of early cardiac decompensation. CXR showed mild central vascular congestion characteristic of early cardiac decompensation. BNP on admission 42 Starting on IV lasix 40mg in the ER Cardiology on board recommended to continue IV Lasix for now Currently on oxygen supplement will plan to wean off oxygen Continue nebulizer treatment Will add guaifenesin and incentive spirometry Continue monitor closely JOSÉ MIGUEL Continue CPAP at night Prediabetes: Most recent hemoglobin A1c 6.3 Continue insulin sliding scale while inpatient History of bipolar disorder: Continue Lamictal, bupropion, modafinil. Hypertension: Continue losartan. Continue monitor BP Hyperlipidemia: On statin. Gastroesophageal reflux disease: On Protonix Chronic kidney disease stage III: Continue monitor BMP while on IV Lasix Deep venous thrombosis prophylaxis: On Lovenox. Code status Full code Admission and Anticipated Discharge Date Admission Date: December 18, 2021 Subjective Pt was seen and examined for follow up of SOB Lying in bed with no acute distress Pt said that breathing slightly improves She continues to have a dry cough alot denies any chest pain, palpitation, dizziness and fever Review of Systems Review of Systems: All systems reviewed & are unremarkable except as noted in Subjective Physical Exam Physical Exam: General- No acute distress Head- atraumatic Eyes- PERRL, EOMI, ENT- oropharynx clear Neck- supple, no JVD Lungs- clear to auscultation Heart- regular rhythm; no murmur Abdomen- normal bowel sounds, soft, nontender Extremities- no calf tenderness Neuro- alert, oriented x 3; PERRL, EOMI; no facial palsy; no dysarthria Skin- warm & dry Results & Data Results & Data ([facility]) Vital Signs (Past 12 Hours) Vital Signs Temp Pulse Pulse Resp BP Pulse Ox 12/19/21 14:59 74 12/19/21 10:47 36.5 C 72 16 132/76 93 12/19/21 07:13 36.5 C 68 16 131/84 92 12/19/21 07:11 66
[2021-12-19] MEDS: guaiFENesin 200 MG TAB PO SCH ×2 (18:08→20:14)
[2021-12-19] MEDS: lamoTRIgine 100 MG TAB PO SCH (20:12)
[2021-12-19] MEDS: traZODone HCL 50 MG TAB PO SCH (20:13)
[2021-12-20] MEDS: guaiFENesin 200 MG TAB PO SCH ×4 (04:14→22:51)
[2021-12-20 06:30] LABS: BUN Creatinine Ratio 16.3 (10-20); Calcium 9.3 mg/dl (8.5-10.1); Creatinine Clr Calc Pharmacy 46.4 ml/min; Est GFR (African American) 47.6 ml/min; Est GFR (Non-African American) 41.1 ml/min; Potassium 4.4 mmol/L (3.5-5.1)
[2021-12-20] MEDS: ASCORBIC ACID 500 MG TAB PO SCH (07:47)
[2021-12-20] MEDS: CALCIUM CARBONATE 1250MG TAB PO SCH (07:47)
[2021-12-20] MEDS: ATORVASTATIN 10 MG TAB PO SCH (07:47)
[2021-12-20] MEDS: buPROPion XL 300 MG TABCR PO SCH (07:47)
[2021-12-20] MEDS: modafiniL 100 MG TAB PO SCH (07:48)
[2021-12-20] MEDS: PANTOprazole 40 MG TAB PO SCH ×2 (07:48→22:48)
[2021-12-20] MEDS: CYANOCOBALAMIN (B-12) 500 MCG TABLET PO SCH (07:48)
[2021-12-20] MEDS: CHOLECALCIFEROL 400 UNITS 10 MCG TAB PO SCH (07:48)
[2021-12-20] MEDS: LOSARTAN POTASSIUM 50 MG TAB PO SCH (07:48)
--- NOTE | 2021-12-20 08:09 | Cardiology Progress Note ---
Date of Service December 20, 2021 Assessment & Plan (1) Hypoxia: (2) Pulmonary edema: (3) History of COVID-19: Plan: Patient admitted for SOB/Hypoxia and findings consistent with pulm edema on chest xray/chest CTA. No Pulmonary embolus. Likely this is residual effects from prior COVID infection and prior COVID pneumonia in Oct/Nov 2021. Cough and wheeze suggestive of ongoing bronchitis. Normal BNP and she does not examine as hypervolemic/acute CHF exacerbation. Her echo is normal. Agree with holding IV diuretics due to bump in renal function- patient likely dry at this point. Continue inhaler/nebs and consider resuming steroids to aid with symptoms. Wean oxygen as tolerated. No further cardiac testing necessary at this time. Case discussed with Dr. James. Admission and Anticipated Discharge Date Admission Date: December 18, 2021 Supervising Physician Co-Signing Physician Notes I have seen and examined the patient. I reviewed the medical record and discussed the case with the nurse practitioner. I agree no additional testing is indicated from a cardiac standpoint at this time. Subjective 66 year old female. Referred by PCP due to hypoxia- thought to be residual from Covid in Oct/Nov 2021. CXR on admission consistent with mild pulm vascular congestion. Chest CTA without evidence of PE. Echo and BNP normal. Given dose of IV Lasix yesterday with mild improvement in symptoms. Labs this am showed a decline in renal function Scr 1.35, normally 0.8-0.9. Upon entrance into the room patient was resting comfortably in bed. No chest pain but continues to be short of breath with minimal exertion like walking to the restroom. Notes coughing with deep inspiration. Remains on 2L NC O2. No palpitations, dizziness, or syncope. Tele: SR with PVCs 80-90s I&O: -2.6L Weight: 93.8kg >> 91.5kg Review of Systems Review of Systems: All systems reviewed & are unremarkable except as noted in HPI & below Physical Exam Constitutional: WD/WN, vitals as above well nourished and + obese; no acute distress Eyes: PERRL, conjunctivae normal, anicteric sclerae ENMT: external ear and nose normal, oropharynx normal Respiratory: + cough and able to speak in complete sentences (but mild conversational dyspnea noted. ) Auscultation: + wheezes; no rales and no rhonchi Cardiovascular: Rate/Rhythm: regular rate and regular rhythm Heart Sounds: normal S1 and normal S2; no murmur Vessels: no JVD Extremities: no edema Gastrointestinal (Abdomen): normal bowel sounds, soft, nontender, no hepatosplenomegaly Musculoskeletal: no cyanosis or clubbing, extremities motor strength 5/5 Skin: no rashes, warm and dry Neurologic: PERRL, EOMI, accommodation nl, no face palsy, no dysarthria Psychiatric: A+Ox3, euthymic affect Results & Data ([facility]) Vital Signs (Past 12 Hours) Vital Signs Temp Pulse Pulse Resp BP Pulse Ox 12/20/21 07:16 98 H 12/20/21 07:07 36.4 C L 95 H 20 127/86 92 12/20/21 03:45 36.7 C 72 18 123/79 94 12/19/21 22:58 37.0 C 81 18 122/78 90 Laboratory Results 12/20/21 12/19/21 Range/Units 05:49 11:34 Sodium 140 (136-145) mmol/L Potassium 4.4 D (3.5-5.1) mmol/L Chloride 101 (98-107) mmol/L Carbon Dioxide 30 (21-32) mmol/L Anion Gap 9 (3-11) BUN 22 (6-23) mg/dl Creatinine 1.35 H D (0.6-1.2) mg/dl Est Cr Clr Drug Dosing 46.4 ml/min Est GFR ( Amer) 47.6 ml/min Est GFR (Non-Af Amer) 41.1 ml/min BUN/Creatinine Ratio 16.3 (10-20) Glucose 118 H (70-99(Fasting)) mg/dl POC Glucose 110 H (70-99) mg/dl Calcium 9.3 (8.5-10.1) mg/dl
[2021-12-20] MEDS ORDERED: predniSONE 20 MG TAB PO STA (12:33)
--- NOTE | 2021-12-20 16:46 | Hospitalist Progress Note ---
Date of Service December 20, 2021 Assessment & Plan (1) History of COVID-19: (2) Pulmonary edema: (3) Hypoxia: Plan: Present on admission with worsening SOB No evidence of CHF on exam CTA chest showed no evidence of PE. dependent edema at the lung bases po steriorly and mild central vascular congestion, again characteristic of early cardiac decompensation. CXR showed mild central vascular congestion characteristic of early cardiac decompensation. BNP on admission 42 Starting on IV lasix 40mg in the ER Cardiology on board recommended to continue IV Lasix for now Currently on oxygen supplement will plan to wean off oxygen Continue nebulizer treatment Will add guaifenesin and incentive spirometry Will add prednisone 40mg daily Continue monitor closely JOSÉ MIGUEL Continue CPAP at night Prediabetes: Most recent hemoglobin A1c 6.3 Continue insulin sliding scale while inpatient History of bipolar disorder: Continue Lamictal, bupropion, modafinil. Hypertension: Continue losartan. Continue monitor BP Hyperlipidemia: On statin. Gastroesophageal reflux disease: On Protonix Chronic kidney disease stage III: Creatinine increased to 1.3 received IV lasix on admission Continue monitor BMP Deep venous thrombosis prophylaxis: On Lovenox. Code status Full code Admission and Anticipated Discharge Date Admission Date: December 18, 2021 Subjective Pt was seen and examined for follow of of cough and SOB Lying in bed with no distress Pt said that she did not sleep last night because she was coughing alot She continues to require oxygen supplement denies any fever, palpitation, chest pain Review of Systems Review of Systems: All systems reviewed & are unremarkable except as noted in Subjective Physical Exam Physical Exam: General- No acute distress Head- atraumatic Eyes- PERRL, EOMI, ENT- oropharynx clear Neck- supple, no JVD Lungs- Diminished BS Heart- regular rhythm; no murmur Abdomen- normal bowel sounds, soft, nontender Extremities- no calf tenderness Neuro- alert, oriented x 3; PERRL, EOMI; no facial palsy; no dysarthria Skin- warm & dry Results & Data Results & Data ([facility]) Vital Signs (Past 12 Hours) Vital Signs Temp Pulse Pulse Resp BP Pulse Ox 12/20/21 15:47 36.7 C 92 H 20 122/82 90 12/20/21 15:41 91 H 12/20/21 11:23 36.6 C 81 18 119/76 91 12/20/21 07:16 98 H 12/20/21 07:07 36.4 C L 95 H 20 127/86 92
[2021-12-20] MEDS: ENOXAPARIN INJ 40 MG/0.4 ML SYR SQ SCH (22:47)
[2021-12-20] MEDS: lamoTRIgine 100 MG TAB PO SCH (22:48)
[2021-12-20] MEDS: traZODone HCL 50 MG TAB PO SCH (22:48)
[2021-12-21] MEDS: guaiFENesin 200 MG TAB PO SCH ×4 (06:08→23:15)
[2021-12-21 07:20] LABS: BUN Creatinine Ratio 24.1 (10-20); Calcium 10.1 mg/dl (8.5-10.1); Creatinine Clr Calc Pharmacy 55.9 ml/min; Est GFR (African American) 59.7 ml/min; Est GFR (Non-African American) 51.5 ml/min; Potassium 4.1 mmol/L (3.5-5.1)
[2021-12-21] MEDS: LEVALBUTEROL 1.25MG/0.5ML NEB INH PRN ×2 (08:26→11:29)
[2021-12-21] MEDS: IPRATROPIUM BROMIDE NEB SOLN 0.02% 2.5 ML VIAL INH PRN ×2 (08:26→11:29)
[2021-12-21] MEDS: LOSARTAN POTASSIUM 50 MG TAB PO SCH (09:41)
[2021-12-21] MEDS: CHOLECALCIFEROL 400 UNITS 10 MCG TAB PO SCH (09:41)
[2021-12-21] MEDS: PANTOprazole 40 MG TAB PO SCH ×2 (09:42→20:41)
[2021-12-21] MEDS: CYANOCOBALAMIN (B-12) 500 MCG TABLET PO SCH (09:43)
[2021-12-21] MEDS: CALCIUM CARBONATE 1250MG TAB PO SCH (09:43)
[2021-12-21] MEDS: ASCORBIC ACID 500 MG TAB PO SCH (09:43)
[2021-12-21] MEDS: ATORVASTATIN 10 MG TAB PO SCH (09:44)
[2021-12-21] MEDS: buPROPion XL 300 MG TABCR PO SCH (09:44)
[2021-12-21] MEDS: modafiniL 100 MG TAB PO SCH (09:48)
[2021-12-21] MEDS ORDERED: FUROSEMIDE INJ 20 MG/2 ML VIAL IV ONE (10:45)
[2021-12-21] MEDS: ACETYLCYSTEINE 10% INHAL SOLN 4 ML **DISPENSED BY RESP. INH SCH ×2 (11:31→20:09)
[2021-12-21] MEDS: predniSONE 20 MG TAB PO SCH (12:48)
--- NOTE | 2021-12-21 15:35 | Hospitalist Progress Note ---
Date of Service December 21, 2021 Assessment & Plan (1) History of COVID-19: (2) Pulmonary edema: (3) Hypoxia: Plan: Present on admission with worsening SOB No evidence of CHF on exam CTA chest showed no evidence of PE. dependent edema at the lung bases po steriorly and mild central vascular congestion, again characteristic of early cardiac decompensation. CXR showed mild central vascular congestion characteristic of early cardiac decompensation. BNP on admission 42 Starting on IV lasix 40mg in the ER Cardiology on board recommended to continue IV Lasix for now Currently on oxygen supplement Continue nebulizer treatment Continue prednidone 40mg today Continue guaifenesin and incentive spirometry Will add mucomyst and will give lasix 20mg x1 today Continue monitor closely JOSÉ MIGUEL Continue CPAP at night Prediabetes: Most recent hemoglobin A1c 6.3 Continue insulin sliding scale while inpatient History of bipolar disorder: Continue Lamictal, bupropion, modafinil. Hypertension: Continue losartan. Continue monitor BP Hyperlipidemia: On statin. Gastroesophageal reflux disease: On Protonix Chronic kidney disease stage III: Creatinine improved to 1.1 Will give lasix 20mg x1 today Continue monitor BMP Deep venous thrombosis prophylaxis: On Lovenox. Code status Full code Admission and Anticipated Discharge Date Admission Date: December 18, 2021 Subjective Pt was seen and examined for follow of of cough and SOB Lying in bed with no distress Pt said that that she continues to have a hard time to bring her phlegm She said that she did not sleep well last night due to the cough denies any fever, palpitation, chest pain Review of Systems Review of Systems: All systems reviewed & are unremarkable except as noted in Subjective Physical Exam Physical Exam: General- No acute distress Head- atraumatic Eyes- PERRL, EOMI, ENT- oropharynx clear Neck- supple, no JVD Lungs- Diminished BS Heart- regular rhythm; no murmur Abdomen- normal bowel sounds, soft, nontender Extremities- no calf tenderness Neuro- alert, oriented x 3; PERRL, EOMI; no facial palsy; no dysarthria Skin- warm & dry Results & Data Results & Data ([facility]) Vital Signs (Past 12 Hours) Vital Signs Temp Pulse Pulse Resp BP Pulse Ox 12/21/21 15:27 89 12/21/21 14:26 36.4 C L 84 18 111/69 93 12/21/21 11:29 82 18 97 12/21/21 11:09 36.4 C L 74 18 124/84 94 12/21/21 08:27 78 18 96 12/21/21 08:00 85 12/21/21 07:16 36.4 C L 97 H 20 142/79 H 92 12/21/21 06:32 90 12/21/21 04:00 36.3 C L 80 18 118/66 92
[2021-12-21] MEDS: ENOXAPARIN INJ 40 MG/0.4 ML SYR SQ SCH (20:41)
[2021-12-21] MEDS: lamoTRIgine 100 MG TAB PO SCH (20:41)
[2021-12-21] MEDS: traZODone HCL 50 MG TAB PO SCH (20:42)
[2021-12-22] MEDS: guaiFENesin 200 MG TAB PO SCH ×4 (05:27→23:49)
[2021-12-22] MEDS: ACETYLCYSTEINE 10% INHAL SOLN 4 ML **DISPENSED BY RESP. INH SCH ×2 (07:21→19:50)
[2021-12-22] MEDS: PANTOprazole 40 MG TAB PO SCH ×2 (08:56→21:08)
[2021-12-22] MEDS: ASCORBIC ACID 500 MG TAB PO SCH (08:56)
[2021-12-22] MEDS: CALCIUM CARBONATE 1250MG TAB PO SCH (08:57)
[2021-12-22] MEDS: LOSARTAN POTASSIUM 50 MG TAB PO SCH (08:57)
[2021-12-22] MEDS: ATORVASTATIN 10 MG TAB PO SCH (08:57)
[2021-12-22] MEDS: buPROPion XL 300 MG TABCR PO SCH (08:58)
[2021-12-22] MEDS: CYANOCOBALAMIN (B-12) 500 MCG TABLET PO SCH (08:58)
[2021-12-22] MEDS: CHOLECALCIFEROL 400 UNITS 10 MCG TAB PO SCH (08:58)
[2021-12-22] MEDS: predniSONE 20 MG TAB PO SCH (08:59)
[2021-12-22] MEDS: modafiniL 100 MG TAB PO SCH (09:01)
--- NOTE | 2021-12-22 14:45 | Hospitalist Progress Note ---
Date of Service December 22, 2021 Assessment & Plan (1) History of COVID-19: (2) Pulmonary edema: (3) Hypoxia: Plan: Present on admission with worsening SOB No evidence of CHF on exam CTA chest showed no evidence of PE. dependent edema at the lung bases po steriorly and mild central vascular congestion, again characteristic of early cardiac decompensation. CXR showed mild central vascular congestion characteristic of early cardiac decompensation. BNP on admission 42 Received IV lasix 40mg in the ER Cardiology on board Currently on oxygen supplement Continue nebulizer treatment Continue prednisone 40mg daily Continue guaifenesin and incentive spirometry Continue mucomyst will consider to give an additional lasix 20mg x1 today Continue monitor closely Will do 2 step exercise in am JOSÉ MIGUEL Continue CPAP at night Prediabetes: Most recent hemoglobin A1c 6.3 Continue insulin sliding scale while inpatient History of bipolar disorder: Continue Lamictal, bupropion, modafinil. Hypertension: Continue losartan. Continue monitor BP Hyperlipidemia: On statin. Gastroesophageal reflux disease: On Protonix Chronic kidney disease stage III: Creatinine improved to 1.1 Continue monitor BMP Deep venous thrombosis prophylaxis: On Lovenox. Code status Full code Admission and Anticipated Discharge Date Admission Date: December 18, 2021 Subjective Pt was seen and examined for follow of of cough and SOB Lying in bed with no distress Pt said that she feels better today and she was able to sleep last night She said that she feels her cough seems to start getting loose Denies any chest pain, palpitation, dizziness and fever Review of Systems Review of Systems: All systems reviewed & are unremarkable except as noted in Subjective Physical Exam Physical Exam: General- No acute distress Head- atraumatic Eyes- PERRL, EOMI, ENT- oropharynx clear Neck- supple, no JVD Lungs- Diminished BS Heart- regular rhythm; no murmur Abdomen- normal bowel sounds, soft, nontender Extremities- no calf tenderness Neuro- alert, oriented x 3; PERRL, EOMI; no facial palsy; no dysarthria Skin- warm & dry Results & Data Results & Data ([facility]) Vital Signs (Past 12 Hours) Vital Signs Temp Pulse Pulse Resp BP Pulse Ox 12/22/21 13:00 36.7 C 78 18 129/75 92 12/22/21 07:25 84 18 97 12/22/21 07:17 74 12/22/21 07:00 36.5 C 67 18 109/70 93 12/22/21 04:13 36.6 C 66 20 114/78 94
[2021-12-22 15:24] LABS: BUN Creatinine Ratio 32.1 (10-20); Calcium 10.2 mg/dl (8.5-10.1); Creatinine Clr Calc Pharmacy 59.3 ml/min; Est GFR (African American) 63.8 ml/min; Est GFR (Non-African American) 55.1 ml/min; Potassium 4.2 mmol/L (3.5-5.1)
[2021-12-22] MEDS ORDERED: FUROSEMIDE 20 MG TAB PO ONE (17:45)
[2021-12-22] MEDS: LEVALBUTEROL 1.25MG/0.5ML NEB INH PRN (19:51)
[2021-12-22] MEDS: IPRATROPIUM BROMIDE NEB SOLN 0.02% 2.5 ML VIAL INH PRN (19:51)
[2021-12-22] MEDS: ENOXAPARIN INJ 40 MG/0.4 ML SYR SQ SCH (21:07)
[2021-12-22] MEDS: lamoTRIgine 100 MG TAB PO SCH (21:08)
[2021-12-22] MEDS: traZODone HCL 50 MG TAB PO SCH (21:08)
[2021-12-23] MEDS: guaiFENesin 200 MG TAB PO SCH ×4 (06:42→22:17)
[2021-12-23] MEDS: CYANOCOBALAMIN (B-12) 500 MCG TABLET PO SCH (07:54)
[2021-12-23] MEDS: LOSARTAN POTASSIUM 50 MG TAB PO SCH (07:54)
[2021-12-23] MEDS: CHOLECALCIFEROL 400 UNITS 10 MCG TAB PO SCH (07:54)
[2021-12-23] MEDS: buPROPion XL 300 MG TABCR PO SCH (07:55)
[2021-12-23] MEDS: ASCORBIC ACID 500 MG TAB PO SCH (07:55)
[2021-12-23] MEDS: PANTOprazole 40 MG TAB PO SCH ×2 (07:55→20:45)
[2021-12-23] MEDS: predniSONE 20 MG TAB PO SCH (07:56)
[2021-12-23] MEDS: CALCIUM CARBONATE 1250MG TAB PO SCH (07:56)
[2021-12-23] MEDS: modafiniL 100 MG TAB PO SCH (07:56)
[2021-12-23] MEDS: ATORVASTATIN 10 MG TAB PO SCH (07:56)
--- NOTE | 2021-12-23 19:18 | Hospitalist Progress Note ---
Date of Service December 23, 2021 Assessment & Plan (1) History of COVID-19: (2) Pulmonary edema: (3) Hypoxia: Plan: Present on admission with worsening SOB No evidence of CHF on exam CTA chest showed no evidence of PE. dependent edema at the lung bases po steriorly and mild central vascular congestion, again characteristic of early cardiac decompensation. CXR showed mild central vascular congestion characteristic of early cardiac decompensation. BNP on admission 42 Received IV lasix 40mg in the ER Cardiology on board No evidence of CHF exacerbation No additional testing is indicated from a cardiac standpoint at this time as per cardiology Continue nebulizer treatment Will decrease prednisone to 20mg daily Continue guaifenesin and incentive spirometry Received Mucomyst neb x 4 doses Will try hypertonic saline neb She was able to wean off oxygen 2 step exercise done today and pt did not require any oxygen supplement Plan to discharge tomorrow ( Will give a script for a nebulizer machine ) JOSÉ MIGUEL Continue CPAP at night Prediabetes: Most recent hemoglobin A1c 6.3 Continue insulin sliding scale while inpatient History of bipolar disorder: Continue Lamictal, bupropion, modafinil. Hypertension: Continue losartan. Continue monitor BP Hyperlipidemia: On statin. Gastroesophageal reflux disease: On Protonix Chronic kidney disease stage III: Creatinine improved to 1.1 Continue monitor BMP Deep venous thrombosis prophylaxis: On Lovenox. Code status Full code Disposition Will discharge home tomorrow Admission and Anticipated Discharge Date Admission Date: December 18, 2021 Subjective Pt was seen and examined for follow of of cough and SOB Lying in bed with no distress Pt said that she is feeling much better today She said that her cough seems to start getting loose She was able to wean off the oxygen Denies any chest pain, palpitation, dizziness and fever Review of Systems Review of Systems: All systems reviewed & are unremarkable except as noted in Subjective Physical Exam Physical Exam: General- No acute distress Head- atraumatic Eyes- PERRL, EOMI, ENT- oropharynx clear Neck- supple, no JVD Lungs-No wheezing, no rale Heart- regular rhythm; no murmur Abdomen- normal bowel sounds, soft, nontender Extremities- no calf tenderness Neuro- alert, oriented x 3; PERRL, EOMI; no facial palsy; no dysarthria Skin- warm & dry Results & Data Results & Data ([facility]) Vital Signs (Past 12 Hours) Vital Signs Temp Pulse Pulse Pulse Pulse Pulse Resp 12/23/21 15:40 62 12/23/21 15:32 36.6 C 83 20 12/23/21 15:00 96 H 92 H 86 12/23/21 11:29 36.7 C 66 Resp Resp Resp BP BP Pulse Ox Pulse Ox 12/23/21 15:40 12/23/21 15:32 131/78 91 12/23/21 15:00 20 20 20 96 12/23/21 11:29 115/68 91 Pulse Ox Pulse Ox 12/23/21 15:40 12/23/21 15:32 12/23/21 15:00 94 93 12/23/21 11:29
[2021-12-23] MEDS: SODIUM CHLOR 7% 4 ML NEB NEB SCH ×2 (19:46→23:56)
[2021-12-23] MEDS: ENOXAPARIN INJ 40 MG/0.4 ML SYR SQ SCH (20:44)
[2021-12-23] MEDS: lamoTRIgine 100 MG TAB PO SCH (20:45)
[2021-12-23] MEDS: traZODone HCL 50 MG TAB PO SCH (20:45)
[2021-12-24] MEDS: guaiFENesin 200 MG TAB PO SCH ×2 (04:41→10:18)
[2021-12-24] MEDS: SODIUM CHLOR 7% 4 ML NEB NEB SCH (07:30)
[2021-12-24] MEDS: ASCORBIC ACID 500 MG TAB PO SCH (08:12)
[2021-12-24] MEDS: CYANOCOBALAMIN (B-12) 500 MCG TABLET PO SCH (08:13)
[2021-12-24] MEDS: buPROPion XL 300 MG TABCR PO SCH (08:13)
[2021-12-24] MEDS: PANTOprazole 40 MG TAB PO SCH (08:13)
[2021-12-24] MEDS: LOSARTAN POTASSIUM 50 MG TAB PO SCH (08:13)
[2021-12-24] MEDS: CALCIUM CARBONATE 1250MG TAB PO SCH (08:14)
[2021-12-24] MEDS: ATORVASTATIN 10 MG TAB PO SCH (08:14)
[2021-12-24] MEDS: CHOLECALCIFEROL 400 UNITS 10 MCG TAB PO SCH (08:14)
[2021-12-24] MEDS: modafiniL 100 MG TAB PO SCH (08:19)
[2021-12-24] MEDS ORDERED: predniSONE 20 MG TAB PO SCH (09:00)
--- NOTE | 2021-12-24 10:38 | Discharge Summary ---
Date of Service December 24, 2021 Admission HPI Per Admitting Provider CHIEF COMPLAINT: Shortness of breath, hypoxia. HISTORY OF PRESENT ILLNESS: A 66-year-old female with past medical history significant for hyperlipidemia, prediabetes, history of sleep apnea, on CPAP, dyspnea on exertion, hypertension, GERD, stage III chronic kidney disease, osteoporosis, bipolar disorder, history of DVT. The patient says she had COVID in mid October this year. Comes with shortness of breath and found to be hypoxic. The patient says since COVID diagnosis, she is not feeling well, feeling weak, short of breath, she has dry cough and she went to PCP's office today because of ongoing symptoms and she was found to be 84% on room air and she was sent to the ER. In the ER, when she came in, she was 89% on room air and on oxygen 2 liters, she is saturating okay. She was seen on 11/27/2021 and treated with azithromycin and prednisone with no improvement and seen in the ED with CT chest with no evidence of PE or COVID pneumonia. She had COVID vaccine x2. The patient states she smoked quarter pack a day in a week for last 20 years, but she did not smoke for last about two months.In the ER her labs are okay. Her BNP is at 42. CTA chest showed no PE, but possible dependent edema in the lung base posteriorly and mild central vascular congestion characteristic of early cardiac decompensation and the patient received a dose of Lasix in the ER and neb in the ER. Currently, resting comfortably, but the patient states without oxygen she is not feeling good. She had felt hot last Friday, but currently no fever, no headache, no blurred visions, no earache, no runny nose, no sore throat, no nausea, no vomiting. Appetite is okay. No chest pain, no abdominal pain. Normal bowel and bladder movements. No swelling in the legs. Admission Exam Per Admitting Provider GENERAL: The patient is obese, not in acute distress. VITAL SIGNS: Temperature 36.7, pulse 78, respiratory rate 20, blood pressure 160/75, oxygen 89% on room air, 93% with 2 liters. HEENT: Pupils equal, round and reactive to light. Oral mucosa moist. NECK: No JVD, no neck masses. CARDIOVASCULAR: S1 and S2 heard. Regular rate and rhythm. No murmur, no gallop. RESPIRATORY SYSTEM: Normal AP diameter. No accessory muscle use. No wheezing. Mild bibasilar crackles heard. ABDOMEN: Soft, bowel sounds present, nontender, no distention. CENTRAL NERVOUS SYSTEM: Cranial nerves II-XII grossly intact, nonfocal. EXTREMITIES: No edema, no erythema. Principal Diagnosis History of COVID-19: Pulmonary edema: Hypoxia: JOSÉ MIGUEL (Obstructive sleep apnea) Continue CPAP at night Prediabetes: History of bipolar disorder: Hypertension: Hyperlipidemia: Gastroesophageal reflux disease: Chronic kidney disease stage III: Discharge Exam General- No acute distress Head- atraumatic Eyes- PERRL, EOMI, ENT- oropharynx clear Neck- supple, no JVD Lungs-No wheezing, no rale Heart- regular rhythm; no murmur Abdomen- normal bowel sounds, soft, nontender Extremities- no calf tenderness Neuro- alert, oriented x 3; PERRL, EOMI; no facial palsy; no dysarthria Skin- warm & dry Discharge Data Allergies Allergy/AdvReac Type Severity Reaction Status Date / Time oxybutynin Allergy Mild DRY MOUTH Verified 12/18/21 20:03 temazepam Allergy Mild DIDN'T Verified 12/18/21 20:03 HELP HER amitriptyline AdvReac Severe NON Verified 12/18/21 20:03 FUNCTIONING buspirone AdvReac Severe IMMOBILE Verified 12/18/21 20:03 lisinopril AdvReac Severe Abdominal Verified 12/18/21 20:03 Pain paroxetine AdvReac Mild SHAKES Verified 12/18/21 20:03 Consultations 12/18/21 21:08 ED Decision to Admit Stat 12/19/21 08:00 Consult Cardiology Routine Ordered Studies 12/18/21 18:22 CT angio chest PE protocol Stat CT angio chest PE protocol CLINICAL HISTORY: Shortness of breath. Evaluate for pulmonary embolus. COMPARISON STUDY: 11/28/2021 and portable chest from 12/18/2021 CT DOSE: 545.96 mGy.cm TECHNIQUE: CT Angio of the chest was performed.followed by image post processing with coronal, and sagittal MIP reformats. Contrast Volume: Optiray 320, 120 ml FINDINGS: Vasculature: There is homogeneous perfusion of the pulmonary vasculature bilaterally. No intraluminal filling defects or evidence for pulmonary embolus is seen. Airway: The airway is clear. No endobronchial lesion is identified. Lungs: There is dependent edema at the lung bases bilaterally. Compared to the portable chest radiograph, there is evidence for mild central interstitial edema, again characteristic of early cardiac decompensation. The lungs are otherwise clear of acute alveolar opacities, air bronchograms or pulmonary nodules. Pleura: There is no evidence for pleural effusion. There is no evidence for pneumothorax. Mediastinum: There is no evidence for pathologic adenopathy. The heart size is within normal limits. The thoracic aorta is within normal limits. There is no evidence for pericardial effusion. Osseous structures: There is no acute osseous pathology. Impression: 1. No CTA evidence for pulmonary embolus. 2. Compared to the portable chest radiograph, there is dependent edema at the lung bases posteriorly and mild central vascular congestion, again characteristic of early cardiac decompensation. ACT 112: Negative or not required by law. Electronically signed by: Paco Cobb M.D. 12/18/2021 8:31 PM Dictated:12/18/212023 Transcribed: 12/18/212023 XR chest 1V portable CLINICAL HISTORY: SOB. COMPARISON STUDY: 11/28/2021 TECHNIQUE: 1 view of the chest FINDINGS: Single frontal view of the chest demonstrates the cardiomediastinal silhouette to be within normal limits. Compared to the previous examination, there is evidence for mild central vascular congestion. There is no peripheral interstitial edema. There is no evidence for pleural effusion. There are no alveolar opacities. There is no acute osseous pathology. IMPRESSION: 1. Compared to the previous examination, there is mild central vascular congestion characteristic of early cardiac decompensation. ACT 112: Negative or not required by law. Electronically signed by: Paco Cobb M.D. 12/18/2021 6:31 PM Dictated:12/18/211828 Transcribed: 12/18/211828 Hospital Course (1) History of COVID-19: (2) Pulmonary edema: (3) Hypoxia: Present on admission with worsening SOB No evidence of CHF on exam CTA chest showed no evidence of PE. dependent edema at the lung bases posteriorly and mild central vascular congestion, again characteristic of early cardiac decompensation. CXR showed mild central vascular congestion characteristic of early cardiac decompensation. BNP on admission 42 Received IV lasix 40mg in the ER Cardiology on board No evidence of CHF exacerbation No additional testing is indicated from a cardiac standpoint at this time as per cardiology Continue nebulizer treatment Continue slow taper prednisone 20mg for 1 more day, then 10mg for 2 more days Continue guaifenesin and incentive spirometry Received Mucomyst neb x 4 doses Trial of hypertonic saline neb seems to help She was able to wean off oxygen 2 step exercise done today and pt did not require any oxygen supplement ( Will give a script for a nebulizer machine ) Clinically improves significantly Will discharge home today JOSÉ MIGUEL Continue CPAP at night Prediabetes: Most recent hemoglobin A1c 6.3 (11/01 ) Continue insulin sliding scale while inpatient Check Hba1c in 2 to 3 months History of bipolar disorder: Continue Lamictal, bupropion, modafinil. Hypertension: Continue losartan. Continue monitor BP Hyperlipidemia: On statin. Gastroesophageal reflux disease: On Protonix Chronic kidney disease stage III: Creatinine improved to 1.1 Continue monitor BMP Deep venous thrombosis prophylaxis: On Lovenox. Code status Full code Disposition Will discharge home today Total Time Total Time Spent Total Time Spent (In Minutes): 35 minutes Discharge Plan Discharge Items Patient Disposition: Home - Self-Care Reason For Visit: SOB Discharge Diagnosis: History of COVID-19: Pulmonary edema: Hypoxia: JOSÉ MIGUEL (Obstructive sleep apnea) Continue CPAP at night Prediabetes: History of bipolar disorder: Hypertension: Hyperlipidemia: Gastroesophageal reflux disease: Chronic kidney disease stage III: Activity: Resume your previous activity Non-emergency contact: Primary Care Provider Call non-emergency contact if: you have any medication questions and your symptoms worsen Follow-up/Referrals: Jon Muse DO [Primary Care Provider] - (Date & Time 12/28/2021 11:20 AM Provider Jon Muse DO Department [facility] ) Diet: Heart Healthy Addtl Attending Provider Instructions: Follow up with your primary care provider Dr. Muse on 12/28/2021 @ 11:20 AM at the [facility] Continue incentive spirometry and flutter valve Continue nebulizer treatment as needed Continue Cpap at night Seek medical attention if your symptoms worsening or develop any shortness of breath Pending Studies at Discharge: No Stand-Alone Forms: My [employer], Smoking Cessation Medications and DC Order Prescriptions: New ipratropium-albuterol 0.5 mg-3 mg(2.5 mg base)/3 mL solution for nebulization 3 ml inhalation Q8H PRN (Reason: wheezing/SOB) Qty: 90 RF: 0 prednisone 10 mg tablet 10 mg PO UD Qty: 4 RF: 0 Continued ascorbic acid (vitamin C) [Vitamin C] 1,000 mg Tablet 1 g PO QAM RF: 0 lamotrigine 200 mg tablet 200 mg PO HS RF: 0 trazodone 50 mg Tablet 25 mg PO HS RF: 0 atorvastatin [Lipitor] 10 mg tablet 10 mg PO QAM RF: 0 cyanocobalamin (vitamin B-12) [Vitamin B-12] 1,000 mcg Tablet 1,000 mcg PO QAM RF: 0 calcium carbonate [Calcium 600] 600 mg calcium (1,500 mg) Tablet 600 mg PO QAM RF: 0 pantoprazole [Protonix] 40 mg tablet,delayed release (DR/EC) 40 mg PO BID RF: 0 cholecalciferol (vitamin D3) [Vitamin D3] 400 unit Capsule 400 unit PO QAM RF: 0 Saline Nasal Mist 0.65 % Aerosol,Harmans 1 spray INTRANASAL UD PRN (Reason: Nasal Congestion) RF: 0 guaifenesin [Mucinex] 600 mg Tablet Extended Release 12hr 600 mg PO Q12H PRN (Reason: Congestion) RF: 0 losartan 50 mg Tablet 50 mg PO QAM RF: 0 Excedrin Extra Strength 250-250-65 mg Tablet 2 tab PO Q8 PRN (Reason: Headache) RF: 0 bupropion HCl [Wellbutrin XL] 300 mg tablet extended release 24 hr 300 mg PO QAM RF: 0 modafinil 100 mg tablet 100 mg PO DAILY RF: 0 albuterol sulfate [ProAir HFA] 90 mcg/actuation HFA aerosol inhaler 1 inh inhalation Q6H PRN (Reason: shortness of breath or wheezing) Qty: 8.5 RF: 0 Discharge Orders: Discharge Order (Routine); Ordered 12/24/21 Ordered By: Thomas Arita Admission Data Admit Date/Time: 12/18/21 22:29 Attending Provider: Thomas Arita Admit Provider: Avery Ruggiero Primary Care Provider: Jon Muse Other Providers: Avery Ruggiero ; Jonathan James
== END 2021-12-24 11:13 | disposition home or self-care (01) | DRG 206 ==
LOC: ED 17:13 → 2N 22:29